=== PATIENT | female | born 1955 | race Caucasian/White ===

== ENCOUNTER → 2017-03-01 | Outpatient (CLI) | payer BC ==
[~2017-03-01] MED LIST: CENTRUM SILVER CHEW PO; POLY335025 PO; POLYCAP4 PO; VIACTIV CALCIUM PO; [UNRECOGNIZED DRUG - OTHER] PO
--- NOTE | 2017-03-02 08:21 | MAMMOGRAPHY REPORT ---
BILATERAL DIGITAL SCREENING MAMMOGRAM TOMOSYNTHESIS WITH CAD: 03/01/2017 CLINICAL HISTORY: Routine screening. Patient has no complaints. TECHNIQUE: Breast tomosynthesis in addition to standard 2D mammography was performed. Current study was also evaluated with a Computer Aided Detection (CAD) system. COMPARISON: Comparison is made to exams dated: 02/26/2016 mammogram, 02/24/2015 mammogram, 02/18/2014 mamm ogram, 02/15/2013 mammogram, 02/10/2012 mammogram, and 02/04/2011 mammogram - [facility] er. BREAST COMPOSITION: The tissue of both breasts is heterogeneously dense, which may obscure small mas ses. FINDINGS: The parenchymal pattern is unchanged. There are a few benign-appearing calcifications in the breasts. No developing mass, architectural distortion or cluster of suspicious microcalcificatio ns is seen. IMPRESSION: ACR BI-RADS CATEGORY 2: BENIGN There is no mammographic evidence of malignancy. A 1 year screening mammogram is recommended. The pa tient will receive written notification of the results. Approximately 10% of breast cancers are not detected with mammography. A negative mammographic report should not delay biopsy if a clinically suggestive mass is present. Jeannie Castellano M.D. ay/:03/01/2017 16:11:29 Bee Farmer: Sujatha GO)(Linda), [facility] letter sent: Normal 1/2 BI-RADS Code: ACR BI-RADS Category 2: Benign
== END | disposition home or self-care (01) ==
LOC: C.MAMM 12:51
PROVIDERS: ATTEND Family Medicine
DX: Z12.31 Encounter for screening mammogram for malignant neoplasm of breast (principal)

== ENCOUNTER → 2017-11-21 | Outpatient (CLI) | payer OTHER | END | disposition home or self-care (01) | LOC: C.MAMM 08:58 | PROVIDERS: ATTEND Family Medicine | DX: M85.88 Other specified disorders of bone density and structure, other site (principal) ==

== ENCOUNTER → 2018-04-24 | Outpatient (CLI) | payer OTHER ==
--- NOTE | 2018-04-24 16:13 | DIAGNOSTIC IMAGING REPORT ---
SOFT TISS HEAD/NECK-THYROID CLINICAL HISTORY: 63 years-old Female presenting with THYROID HYPODENSITY SHOWN ON CT SCAN/IRAJ. TECHNIQUE: Real-time grayscale and color Doppler ultrasound imaging of the thyroid and base of the neck was performed. COMPARISON: None. FINDINGS: Right lobe: Normal echogenicity and echotexture. The right lobe of the thyroid measures 5.2 x 1.2 x 1.4 cm. No parenchymal hyperemia. Index nodule(s) enumerated below: 1. Interpolar cystic simple circumscribed wider than tall nodule, measuring 0.6 x 0.4 x 0.5 cm. This also demonstrates posterior acoustic enhancement. Punctate peripheral hyperechogenic focus likely colloid. (Benign) Left lobe: Normal echogenicity and echotexture. The left lobe of the thyroid measures 5.2 x 1.3 x 1.4 cm. No parenchymal hyperemia. Index nodule(s) enumerated below: 1. Lower pole cystic simple circumscribed wider than tall nodule, measuring 0.7 x 0.4 x 0.5 cm. No calcification. (Benign) Isthmus: The isthmus measures 2 mm in thickness. No parenchymal hyperemia. No nodules. 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 No solid nodule. Electronically signed by: Alen Silva M.D. 04/24/2018 4:12 PM Dictated Date/Time: 04/24/2018 4:09 PM
== END | disposition home or self-care (01) ==
LOC: C.ULTR 15:04
PROVIDERS: ATTEND Family Medicine
DX: R93.8 Abnormal findings on diagnostic imaging of other specified body structures (principal)

== ENCOUNTER 2022-12-30 19:18 | Inpatient (IN) ==
[2022-12-30] MEDS ORDERED: SODIUM CHLORIDE 0.9% 1000ML 1,000 ML IV ONE (19:47)
[2022-12-30] MEDS ORDERED: ONDANSETRON INJ 2 MG/ML 2 ML VIAL IV STA (19:47)
[2022-12-30] MEDS ORDERED: KETOROLAC TROMETHAMINE 15 MG/ML VIAL IV STA (20:02)
[2022-12-30] MEDS ORDERED: MoRPHine SULFATE 4 MG/ML 1 ML CARP\\VIAL IV STA (20:02)
--- NOTE | 2022-12-30 20:07 | Emergency Department Note ---
Impression & Plan Lower abdominal pain, Constipation, Dysuria, Granulosa cell carcinoma ED Provider Note NAME: GALO ESTRADA AGE: 67 SEX: F : 1955 ARRIVES VIA: Walk-In INFORMANT: [Patient] ED PROVIDER(S): [Demetrius Joyce MD] CHIEF COMPLAINT: Abdominal pain HISTORY OF PRESENT ILLNESS: The patient is a 67-year-old female who presents with lower abdominal pain. The patient states that she had some pain this morning but it seemed to go away after a bowel movement. In the last few hours, the pain has returned and is quite severe. It is in the mid low pelvis. She also had a hard time urinating. No fever, no vomiting. There has been no cough or congestion or shortness of breath. She rates the pain as constant and she states it is quite severe. Patient is undergoing chemotherapy treatment for this cancer. She has had 3 of 6 scheduled infusions. She is followed primarily by [facility] although, she received her chemotherapy here under the care of Dr. Olvera. PMHx/PSHx: See Below SOCIAL HISTORY: See Below. PHYSICAL EXAM: GENERAL: Patient is in mild distress from pain. HEENT: No acute trauma, normocephalic atraumatic, mucous membranes moist, no nasal congestion. NECK: No stridor, no adenopathy, no meningismus, trachea is midline. LUNGS: Clear to auscultation bilaterally, no wheeze, no rhonchi, breath sounds equal. HEART: Without murmurs gallops or rubs, regular rate and rhythm. ABDOMEN: Soft, moderately tender in the mid low pelvis, there is some mild distention here. No true peritonitis. EXTREMITIES: No cyanosis or edema, full range of motion of all the joints without pain or difficulty, no signs for acute trauma. NEUROLOGIC: Oriented x 3, no acute motor or sensory deficits, no focal weakness. SKIN: No rash, no jaundice, no diaphoresis. DIFFERENTIAL DIAGNOSIS: Urinary retention, UTI, bowel obstruction, diverticulitis, appendicitis, foodborne or viral illness, among others. EMERGENCY DEPARTMENT COURSE/PROCEDURES: Prior/Outside records reviewed: None. MEDICAL DECISION MAKING: The patient had a Holder catheter placed by nursing staff. She felt markedly better after catheter placement. About 500 cc of urine drained. There is no leukocytosis or concerning anemia. There is a normal platelet count. No renal failure or significant electrolyte abnormality. No concerning liver enzyme elevation. No pancreatitis. Urinalysis does not show findings of infection. COVID test returned negative. Abdominal and pelvis CT shows worsening of her tumor burden, there was some fluid in the pelvis. There was the thought of potential bleeding into a tumor in the left upper quadrant. Of note, the patient does not have pain in this area. Constipation was noted. The patient received IV saline, 1 L, she was given IV Zofran IV morphine and IV Toradol. The patient states that he feels markedly better. She felt almost immediate relief with the placement of her Holder catheter. I spoke with Dr. Olvera of hematology oncology. We discussed the case. The patient is not in need of emergent transfer to [facility]. Apparently, the patient is failing all attempts to treat her cancer. For now, the patient can stay at our facility, a bowel regimen was suggested as constipation may in fact be the cause for her trouble. She did feel better earlier today with a bowel movement. Now that her bladder has been drained, she feels better. The patient does appear quite stable. She understands the need for hospitalization and observation. She understands she may require transfer to [facility] if worsening. I spoke with the counseling case manager, I did speak with the on-call hospitalist. DISPOSITION: Patient's presentation and findings warrant a hospital stay. 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 Beliefs That Will Affect Care: None marital status: Single Current Living Situation: Family current occupational status: retired Feels Safe at Home: Yes caffeine: No Physical Activity Frequency: 3-4 Times per Week Physical Activity Frequency Comment: training for 100 mile bike ride Assistive Devices: Glasses Allergies Allergies Allergy/AdvReac Type Severity Reaction Status Date / Time adhesive Allergy Unknown adhesive Verified 12/30/22 22:22 bandage Unclassified Drugs Allergy Unknown PUSTULES Uncoded 12/30/22 22:22 FORMED UNDER DERMABOND Home Meds Home Medications Medication Instructions Recorded Confirmed multivit with 1 tab PO QAM 03/29/19 12/30/22 [place]-zzbx-EX-lutein 8 mg iron-400 mcg-300 mcg tablet (Centrum Silver Women) mv-min-vit B-butc-cqiend dmitry-herb 1 mg PO QAM 03/29/19 12/30/22 #124 250 mg-12.5 mg chewable tablet (Airborne (with lysine acetate)) calcium 650 mg-vitamin D3 12.5 1 tab PO BID 10/02/19 12/30/22 mcg-vitamin K 40 mcg chewable tablet (Viactiv) anastrozole 1 mg tablet (Arimidex) 1 mg PO QAM 03/29/21 12/30/22 polyethylene glycol 3350 17 17 g PO DAILY 03/26/22 12/30/22 gram/dose oral powder (Miralax) psyllium husk 3.4 gram/5.4 gram 2 tbsp PO 3XWK 03/26/22 12/30/22 oral powder (Metamucil) white petrolatum (Vaseline jelly, 1 applic topical QA 12/30/22 12/30/22 topical) Results & Data (ED) Vital Signs Vital Signs - 24 hr 12/30/22 19:30 12/30/22 20:47 12/30/22 20:46 Temperature 36.6 C Temperature Source Temporal Artery Scan Pulse Rate 117 H 66 64 Pulse Rate from SpO2 Sensor 65 Respiratory Rate 20 20 Blood Pressure 121/52 L Blood Pressure Mean 75 Pulse Oximetry 99 98 Oxygen Delivery Method Room Air Sepsis Recent Fever Within 48 Hours No Sepsis New/Unexplained Change in Mental Status No Sepsis Action Taken by Nursing No Action Required 12/30/22 21:22 12/30/22 21:30 12/30/22 22:00 Temperature Temperature Source Pulse Rate 75 62 69 Pulse Rate from SpO2 Sensor 63 69 Respiratory Rate 39 H 16 17 Blood Pressure Blood Pressure Mean Pulse Oximetry 99 99 Oxygen Delivery Method Sepsis Recent Fever Within 48 Hours Sepsis New/Unexplained Change in Mental Status Sepsis Action Taken by Nursing 12/30/22 22:30 12/30/22 23:00 12/30/22 23:27 Temperature Temperature Source Pulse Rate 63 66 61 Pulse Rate from SpO2 Sensor 64 68 61 Respiratory Rate 17 22 12 Blood Pressure 107/62 Blood Pressure Mean 77 Pulse Oximetry 98 97 98 Oxygen Delivery Method Room Air Sepsis Recent Fever Within 48 Hours Sepsis New/Unexplained Change in Mental Status Sepsis Action Taken by Longterm Medications Current Medication List: was personally reviewed by me Laboratory Data Attestation: I reviewed the patient's lab results. 12/30/22 19:42 12/30/22 19:42 Lab Results 12/30/22 12/30/22 12/30/22 Range/Units 19:42 19:42 20:16 WBC 10.63 (4.8-10.8) K/ul RBC 4.76 (4.20-5.40) M/uL Hgb 13.3 (12.0-16.0) g/dl Hct 40.2 (37.0-47.0) % MCV 84.5 (80.0-100.0) fL MCH 27.9 (25.0-34.0) pg MCHC 33.1 (32.0-36.0) g/dL RDW Std Deviation 42.9 (36.4-46.3) fL RDW Coeff of [place] 13.8 (11.5-14.5) % Plt Count 218 (130-400) K/uL MPV 10.1 (9.4-12.4) fL Immature Gran % (Auto) 0.4 % Neut % (Auto) 87.8 % Lymph % (Auto) 6.5 % Mcmullen % (Auto) 5.0 % Eos % (Auto) 0.0 % Baso % (Auto) 0.3 % Neut # (Auto) 9.34 H (1.40-6.50) K/uL Lymph # (Auto) 0.69 L (1.2-3.4) K/uL Mcmullen # (Auto) 0.53 (0.11-0.59) K/uL Eos # (Auto) 0.00 (0-0.50) K/uL Baso # (Auto) 0.03 (0-0.2) K/uL Immature Gran # (Auto) 0.04 (0.01-0.20) K/uL Sodium 139 (136-145) mmol/L Potassium 4.6 (3.5-5.1) mmol/L Chloride 106 (98-107) mmol/L Carbon Dioxide 25 (21-32) mmol/L Anion Gap 8 (3-11) BUN 27 H (6-23) mg/dl Creatinine 0.95 (0.6-1.2) mg/dl Est Cr Clr Drug Dosing 42.4 ml/min Est GFR ( Amer) 72.8 ml/min Est GFR (Non-Af Amer) 62.9 ml/min BUN/Creatinine Ratio 28.4 H (10-20) Glucose 181 H (70-99(Fasting)) mg/dl Calcium 9.7 (8.6-10.3) mg/dl Total Bilirubin 0.6 (0.2-1.0) mg/dl AST 25 (13-39) U/L ALT 16 (7-52) U/L Alkaline Phosphatase 96 (34-104) U/L Total Protein 7.2 (6.0-8.3) gm/dl Albumin 4.1 (3.4-5.0) gm/dl Globulin 3.1 (2.5-4.0) gm/dl Albumin/Globulin Ratio 1.3 (0.9-2) Lipase 11 (11-82) U/L Urine Color Dark Yellow Urine Appearance Cloudy A (Clear) Urine pH 5.5 (4.5-7.5) Ur Specific [place] 1.021 (1.000-1.030) Urine Protein Negative (Negative) Urine Glucose (UA) Negative (Negative) Urine Ketones 1+ H (Negative) Urine Blood Negative (Negative) Urine Nitrite Negative (Negative) Urine Bilirubin Negative (Negative) Urine Urobilinogen Negative (Negative) Ur Leukocyte Esterase Negative (Negative) Urine WBC (Auto) 1-5 (0-5) /hpf Urine RBC (Auto) 0-4 (0-4) /hpf U Hyaline Cast (Auto) 1-5 (0-5) /lpf U Epithel Cells (Auto) 10-20 H (0-5) /lpf Urine Bacteria (Auto) Negative (Negative) Urine Crystals Not Reportable Uric Acid Crystals Present A (None Prsent) SARS-CoV-2, RNA, NAAT (NEGATIVE) 12/30/22 Range/Units 22:50 WBC (4.8-10.8) K/ul RBC (4.20-5.40) M/uL Hgb (12.0-16.0) g/dl Hct (37.0-47.0) % MCV (80.0-100.0) fL MCH (25.0-34.0) pg MCHC (32.0-36.0) g/dL RDW Std Deviation (36.4-46.3) fL RDW Coeff of [place] (11.5-14.5) % Plt Count (130-400) K/uL MPV (9.4-12.4) fL Immature Gran % (Auto) % Neut % (Auto) % Lymph % (Auto) % Mcmullen % (Auto) % Eos % (Auto) % Baso % (Auto) % Neut # (Auto) (1.40-6.50) K/uL Lymph # (Auto) (1.2-3.4) K/uL [place]ullen # (Auto) (0.11-0.59) K/uL Eos # (Auto) (0-0.50) K/uL Baso # (Auto) (0-0.2) K/uL Immature Gran # (Auto) (0.01-0.20) K/uL Sodium (136-145) mmol/L Potassium (3.5-5.1) mmol/L Chloride (98-107) mmol/L Carbon Dioxide (21-32) mmol/L Anion Gap (3-11) BUN (6-23) mg/dl Creatinine (0.6-1.2) mg/dl Est Cr Clr Drug Dosing ml/min Est GFR ( Amer) ml/min Est GFR (Non-Af Amer) ml/min BUN/Creatinine Ratio (10-20) Glucose (70-99(Fasting)) mg/dl Calcium (8.6-10.3) mg/dl Total Bilirubin (0.2-1.0) mg/dl AST (13-39) U/L ALT (7-52) U/L Alkaline Phosphatase (34-104) U/L Total Protein (6.0-8.3) gm/dl Albumin (3.4-5.0) gm/dl Globulin (2.5-4.0) gm/dl Albumin/Globulin Ratio (0.9-2) Lipase (11-82) U/L Urine Color Urine Appearance (Clear) Urine pH (4.5-7.5) Ur Specific [place] (1.000-1.030) Urine Protein (Negative) Urine Glucose (UA) (Negative) Urine Ketones (Negative) Urine Blood (Negative) Urine Nitrite (Negative) Urine Bilirubin (Negative) Urine Urobilinogen (Negative) Ur Leukocyte Esterase (Negative) Urine WBC (Auto) (0-5) /hpf Urine RBC (Auto) (0-4) /hpf U Hyaline Cast (Auto) (0-5) /lpf U Epithel Cells (Auto) (0-5) /lpf Urine Bacteria (Auto) (Negative) Urine Crystals Uric Acid Crystals (None Prsent) SARS-CoV-2, RNA, NAAT NEGATIVE (NEGATIVE) Administered Medications Discontinued Medications Sodium Chloride (Nss 1000ml) 1,000 mls @ 999 mls/hr IV .Q1H1M ONE Stop: 12/30/22 20:47 Last Infusion: 12/30/22 22:52 Dose: 0 mls/hr Documented By: Admin: 12/30/22 20:26 Dose: 999 mls/hr Documented By: JADEN Ioversol (Optiray 350 100ml) 82 ml IV ONCE ONE Stop: 12/30/22 20:58 Last Admin: 12/30/22 20:58 Dose: 82 ml Documented By: MAREILLA Ketorolac Tromethamine (Ketorolac Tromethamine 15 Mg/Ml Vial) 15 mg IV NOW STA Stop: 12/30/22 20:03 Last Admin: 12/30/22 20:27 Dose: 15 mg Documented By: JADEN Morphine Sulfate (Morphine Sulfate 4 Mg/Ml 1 Ml Carp\Vial) 4 mg IV NOW STA Stop: 12/30/22 20:03 Last Admin: 12/30/22 20:28 Dose: 4 mg Documented By: JADEN Ondansetron HCl (Ondansetron Inj 2 Mg/Ml 2 Ml Vial) 4 mg IV NOW STA Stop: 12/30/22 19:48 Last Admin: 12/30/22 20:27 Dose: 4 mg Documented By: JADEN Imaging Data Radiologist's Impression: Abdomen/Pelvis CT 12/30/22 19:47 CR Exam(s): CT ABDOMEN + PELVIS With Contrast IV Amt: 82ml EXAM: CT Abdomen and Pelvis With Intravenous Contrast CLINICAL HISTORY: Reason for exam: poss divertic. TECHNIQUE: Axial computed tomography images of the abdomen and pelvis with intravenous contrast. CTDI is 10.23 mGy and DLP is 418.14 mGy-cm. Automated exposure control was utilized for the study. A dose lowering technique was utilized adhering to the principles of ALARA. CONTRAST: Patient received 82ml of IV contrast COMPARISON: No relevant prior studies available. FINDINGS: Lung bases are clear. There is evidence of peritoneal carcinomatosis with multiple metastatic deposits, as seen on prior exam. There is a 1.7 cm mass indenting the liver capsule along the lateral right hepatic lobe, stable from prior exam (series 2, image 21) There is a right pelvic mass measuring 4.0 x 3.6 cm, increased from 3.1 x 3.0 cm on prior exam (series 2, image 64). Multiple additional pelvic masses have increased in size and number. There is a dominant left upper quadrant mass located at the splenic hilum which has increased in size from prior exam, currently measuring 7.8 x 6. 3 x 7.4 cm, previously 5.7 x 5.0 x 5.2 cm (series 2, image 27). There is a hypervascular blush within this mass concerning for active intratumoral bleeding. In addition, a small volume of hyperdense ascites has developed within the abdomen, which could reflect hemorrhagic versus proteinaceous fluid. Liver, gallbladder, spleen, pancreas, and right adrenal gland are unremarkable. Left adrenal gland is poorly visualized. Kidneys enhance symmetrically. There is no hydronephrosis. There is stable mild fullness of the bilateral renal collecting systems. There is mild atherosclerosis without aortic aneurysm. There is no adenopathy. Urinary bladder is decompressed around a Holder catheter. Uterus is not visualized and may be surgically absent. Colonic stool retention suggest constipation. There is no evidence of mechanical bowel obstruction. Appendix is not visualized. There are no acute osseous findings. IMPRESSION: 1. Peritoneal carcinomatosis. 2. Dominant left upper quadrant mass has increased in size. Intratumoral contrast blush is suggestive of active intratumoral hemorrhage in this location. 3. Interval development of small volume of hyperdense ascites. Differential considerations include hemoperitoneum versus proteinaceous fluid. 4. Interval increase in size and number of numerous metastatic deposits in the pelvis. 5. No evidence of acute bowel inflammation. Colonic stool retention suggesting constipation. Communications: Call Doctor Other Electronically signed by: Alexis Marroquin M.D. 12/30/22 21:42 PM Discharge Plan Visit Data Chief Complaint: Abdominal Pain Stated Complaint: ABDOMINAL PAIN ED Provider: Demetrius Joyce Discharge Problem: Lower abdominal pain, Constipation, Dysuria, Granulosa cell carcinoma Patient Disposition: Admitted As Inpatient Condition: Fair Forms Stand Alone Forms: My [facility] Prescriptions Prescriptions: No Action polyethylene glycol 3350 [Miralax] 17 gram/dose powder 17 g PO DAILY Metamucil 3.4 gram/5.4 gram powder 2 tbsp PO 3XWK Rx Instructions: mix into at least 8 oz of water or juice before administering Tuesday//Tuesday Centrum Silver Women 8 mg iron-400 mcg-300 mcg Tablet 1 tab PO QAM Airborne (with lysine acetate) 250-12.5 mg Tablet,Chewable 1 mg PO QAM calcium-vitamin D3-vitamin K [Viactiv] 650 mg-12.5 mcg-40 mcg Tablet,Chewable 1 tab PO BID Rx Instructions: 1 chew twice daily white petrolatum [Vaseline] Gel 1 applic TOPICAL QAM Rx Instructions: apply after cleansing to biopsy site left temporal area anastrozole [Arimidex] 1 mg tablet 1 mg PO QAM Referrals Referrals: Angie Martínez MD [Primary Care Provider] -
[2022-12-30 20:19] LABS: Basophils # (auto) 0.03 K/uL (0-0.2); Basophils % (auto) 0.3 %; Hematocrit (blood only) 40.2 % (37.0-47.0); Hemoglobin 13.3 g/dl (12.0-16.0); Immature Granulocytes # (auto) 0.04 K/uL (0.01-0.20); Immature Granulocytes % (auto) 0.4 %; Lymphocytes # (auto) 0.69 K/uL (1.2-3.4); Lymphocytes % (auto) 6.5 %; Mean Corpuscular Hemoglobin 27.9 pg (25.0-34.0); Mean Corpuscular Hgb Conc 33.1 g/dL (32.0-36.0); Mean Corpuscular Volume 84.5 fL (80.0-100.0); Mean Platelet Volume 10.1 fL (9.4-12.4); Monocytes # (auto) 0.53 K/uL (0.11-0.59); Neutrophils # (auto) 9.34 K/uL (1.40-6.50); Neutrophils % (auto) 87.8 %; Platelet Count 218 K/uL (130-400); RDW Coefficient of Variation 13.8 % (11.5-14.5); RDW Standard Deviation 42.9 fL (36.4-46.3); Red Blood Count 4.76 M/uL (4.20-5.40); White Blood Count 10.63 K/ul (4.8-10.8)
[2022-12-30 20:30] LABS: Appearance Urine Cloudy (Clear); Bacteria Urine Automated Negative (Negative); Bilirubin Urine Negative (Negative); Blood Urine Negative (Negative); Color Urine Dark Yellow; Glucose Urine UA Negative (Negative); Ketones Urine 1+ (Negative); Leukocyte Esterase Urine Negative (Negative); Nitrite Urine Negative (Negative); Protein Urine Negative (Negative); RBC Urine Automated 0-4 /hpf (0-4); Specific Gravity Urine 1.021 (1.000-1.030); Urobilinogen Urine Negative (Negative); pH Urine 5.5 (4.5-7.5)
[2022-12-30 20:32] LABS: Albumin Globulin Ratio 1.3 (0.9-2); Albumin Level 4.1 gm/dl (3.4-5.0); BUN Creatinine Ratio 28.4 (10-20); Bilirubin,Total 0.6 mg/dl (0.2-1.0); Calcium 9.7 mg/dl (8.6-10.3); Creatinine Clr Calc Pharmacy 42.4 ml/min; Est GFR (African American) 72.8 ml/min; Est GFR (Non-African American) 62.9 ml/min; Globulin 3.1 gm/dl (2.5-4.0); Potassium 4.6 mmol/L (3.5-5.1); Total Protein 7.2 gm/dl (6.0-8.3)
[2022-12-30 20:43] LABS: Uric Acid Crystals Urine Present (None Prsent)
[2022-12-30] MEDS ORDERED: OPTIRAY 350 100ml IV ONE (20:57)
--- NOTE | 2022-12-30 21:43 | CT Scan Report ---
Exam(s): CT ABDOMEN + PELVIS With Contrast IV Amt: 82ml EXAM: CT Abdomen and Pelvis With Intravenous Contrast CLINICAL HISTORY: Reason for exam: poss divertic. TECHNIQUE: Axial computed tomography images of the abdomen and pelvis with intravenous contrast. CTDI is 10.23 mGy and DLP is 418.14 mGy-cm. Automated exposure control was utilized for the study. A dose lowering technique was utilized adhering to the principles of ALARA. CONTRAST: Patient received 82ml of IV contrast COMPARISON: No relevant prior studies available. FINDINGS: Lung bases are clear. There is evidence of peritoneal carcinomatosis with multiple metastatic deposits, as seen on prior exam. There is a 1.7 cm mass indenting the liver capsule along the lateral right hepatic lobe, stable from prior exam (series 2, image 21) There is a right pelvic mass measuring 4.0 x 3.6 cm, increased from 3.1 x 3.0 cm on prior exam (series 2, image 64). Multiple additional pelvic masses have increased in size and number. There is a dominant left upper quadrant mass located at the splenic hilum which has increased in size from prior exam, currently measuring 7.8 x 6. 3 x 7.4 cm, previously 5.7 x 5.0 x 5.2 cm (series 2, image 27). There is a hypervascular blush within this mass concerning for active intratumoral bleeding. In addition, a small volume of hyperdense ascites has developed within the abdomen, which could reflect hemorrhagic versus proteinaceous fluid. Liver, gallbladder, spleen, pancreas, and right adrenal gland are unremarkable. Left adrenal gland is poorly visualized. Kidneys enhance symmetrically. There is no hydronephrosis. There is stable mild fullness of the bilateral renal collecting systems. There is mild atherosclerosis without aortic aneurysm. There is no adenopathy. Urinary bladder is decompressed around a Holder catheter. Uterus is not visualized and may be surgically absent. Colonic stool retention suggest constipation. There is no evidence of mechanical bowel obstruction. Appendix is not visualized. There are no acute osseous findings. IMPRESSION: 1. Peritoneal carcinomatosis. 2. Dominant left upper quadrant mass has increased in size. Intratumoral contrast blush is suggestive of active intratumoral hemorrhage in this location. 3. Interval development of small volume of hyperdense ascites. Differential considerations include hemoperitoneum versus proteinaceous fluid. 4. Interval increase in size and number of numerous metastatic deposits in the pelvis. 5. No evidence of acute bowel inflammation. Colonic stool retention suggesting constipation. Communications: Call Doctor Other Electronically signed by: Alexis Marroquin M.D. 12/30/22 21:42 PM
--- NOTE | 2022-12-30 23:34 | History & Physical Report ---
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 Now admitted for management of constipation without obstruction. Lower abdominal pain/constipation -Hemodynamically stable. No concerning lab abnormalities. FOBT negative -No evidence of ileus or obstruction or pneumoperitoneum on CT A/P. -Fecal retention noted on CT A/P suggesting constipation. -Patient reports 3 bowel movements on day of admission. * Admit to MedSurg * Clear liquid diet at breakfast. Advance as tolerated. * Bowel regimen: MiraLAX scheduled twice daily, electrolyte magnesia every 6 hours as needed * IV Tylenol 1000 mg every 8 hours as needed for pain. * IV Zofran 4 mg every 4 hour as needed for nausea. * Trend labs Granulosa cell tumor -Patient managed at [facility] but sees Dr. Olvera of [facility] oncology. -S/p surgery, chemotherapy with no improvement. -Per patient, currently midway through most recent round of chemotherapy treatments. -Dr. Olvera aware of patient admission, plan. Code: Full code Dispo: Med-Surg FEN/GI: Clear liquid diet. DVT Prophylaxis: Home Eliquis 2.5 mg p.o. twice daily PT/OT: No Consults: None (2) Constipation: (3) Granulosa cell tumor of left ovary: History of Present Illness Primary Care Provider: Angie Martínez MD Inga is a 67-year-old woman with a history of granulosa cell tumor of the left ovary who presented to the emergency room with lower abdominal pain. She had had some pain this morning that resolved after bowel movement. However, over the hours prior to admission, the pain returned and became quite severe. She localizes this pain in the mid lower abdomen and pelvis. She denies fever, nausea, cough, congestion, or shortness of breath. Pain is constant and severe. In the ED, patient was hemodynamically stable. No evidence of leukocytosis or anemia. Platelet count was normal. No electrolyte abnormalities were noted. No concerning liver elevation. No evidence of pancreatitis. Urinalysis was negative. CT abdomen pelvis did show worsening of patient's tumor burden, and some fluid was noted to be in the pelvis. However, no evidence of pneumoperitoneum and tumor is localized to the region entirely separate from the area of her abdominal pain. Patient received IV saline, IV Zofran,, and IV analgesics. On admission, patient reports feeling much better at this time. ED physician had placed Holder catheter, which relieved most of her symptoms. Allergies Allergy/AdvReac Type Severity Reaction Status Date / Time adhesive Allergy Unknown adhesive Verified 12/30/22 22:22 bandage Unclassified Drugs Allergy Unknown PUSTULES Uncoded 12/30/22 22:22 FORMED UNDER DERMABOND Home Medications Medication Instructions Recorded Confirmed Type multivit with 1 tab PO QAM 03/29/19 12/30/22 History qtvxdqgi-xvzb-HG-lutein 8 mg iron-400 mcg-300 mcg tablet (Centrum Silver Women) mv-min-vit L-yjaw-flyhwt dmitry-herb 1 mg PO QAM 03/29/19 12/30/22 History #124 250 mg-12.5 mg chewable tablet (Airborne (with lysine acetate)) calcium 650 mg-vitamin D3 12.5 1 tab PO BID 10/02/19 12/30/22 History mcg-vitamin K 40 mcg chewable tablet (Viactiv) anastrozole 1 mg tablet (Arimidex) 1 mg PO QAM 03/29/21 12/30/22 History polyethylene glycol 3350 17 17 g PO DAILY 03/26/22 12/30/22 History gram/dose oral powder (Miralax) psyllium husk 3.4 gram/5.4 gram 2 tbsp PO 3XWK 03/26/22 12/30/22 History oral powder (Metamucil) white petrolatum (Vaseline jelly, 1 applic topical QAM 12/30/22 12/30/22 History topical) Past Med/Surg History Medical History Granulosa cell carcinoma Surgical History H/O oophorectomy History of cancer surgery multiple tumor debulking procedures History of hysterectomy Family History (Updated 05/06/21 @ 08:24 by Vicki Nair RN) Mother Cancer Colon Cancer Social History Smoking Status: Never smoker Hx Alcohol Use: No Hx Substance Use: No Preferred Language: Grenadian Communication Ability: Effective Hearing Ability: Normal Wage And Salary Administrator Required: No Beliefs That Will Affect Care: None marital status: Single Current Living Situation: Family current occupational status: retired Other Information That Helps Us Care for You: No Feels Safe at Home: Yes Safety Concerns: Feels Safe At This Time caffeine: No Physical Activity Frequency: 3-4 Times per Week Physical Activity Frequency Comment: training for 100 mile bike ride Assistive Devices: None Review of Systems Review of Systems: All systems reviewed & are unremarkable except as noted in HPI & below Physical Exam Physical Exam: General: No acute distress HEENT: PERRLA. Normal conjunctiva, anicteric sclera. Oropharynx normal. Respiratory: Normal respiratory effort, CTABL. Cardiovascular: RRR without murmurs, gallops, or rubs. No edema. GI: Soft abdomen with normal bowel sounds heard on auscultation. Nontender x4 quadrants Neuro: Alert and oriented x3. Results & Data Results & Data Vital Signs (Past 12 Hours) Vital Signs Temp Pulse Resp BP Pulse Ox O2 Del Method 12/30/22 23:27 61 12 107/62 98 12/30/22 23:00 66 22 97 12/30/22 22:30 63 17 98 Room Air 12/30/22 22:00 69 17 99 12/30/22 21:30 62 16 99 12/30/22 21:22 75 39 H 12/30/22 20:46 64 12/30/22 20:47 66 20 98 12/30/22 19:30 36.6 C 117 H 20 121/52 L 99 Room Air Supervising Physician Co-Signing Physician Notes Attending addendum: I have physically seen this patient, have supervised the medical residents activities, and agree with the H&P unless as otherwise noted. Assessment and Plan: Lower abdominal pain/severe constipation- CT negative for obstruction, ileus or pneumoperitoneum Bowel regimen as noted Acetaminophen 1 g IV every 8 hours as needed for mild pain or fever Zofran 4 mg IV every 6 hours as needed for nausea or vomiting IV fluids Full liquid diet as tolerated Granulosa cell tumor- Recommendations for admission here per Dr. Olvera. Status post surgery and chemotherapy with [facility] Remaining orders and notations as noted Resident Activity Tracking Resident Involvement: Resident Care Provided Care Provided: Adult Hospital Medicine (2) Constipation Constipation type: unspecified constipation type Qualified Code(s): K59.00 - Constipation, unspecified
[2022-12-31] MEDS ORDERED: ONDANSETRON INJ 2 MG/ML 2 ML VIAL IV PRN (00:43)
[2022-12-31] MEDS ORDERED: MAGNESIUM HYDROXIDE SUSP 30 ML UDC PO PRN (01:36)
[2022-12-31] MEDS ORDERED: POLYETHYLENE (MIRALAX) 17 GM PACK PO STA (01:36)
[2022-12-31] MEDS ORDERED: ACETAMINOPHEN 1,000 MG/100 ML VIAL IV PRN (07:05)
[2022-12-31 07:12] LABS: BUN Creatinine Ratio 31.9 (10-20); Calcium 8.4 mg/dl (8.6-10.3); Est GFR (African American) 101.9 ml/min; Est GFR (Non-African American) 87.9 ml/min; Magnesium 2.2 mg/dl (1.7-2.4); Potassium 3.8 mmol/L (3.5-5.1)
[2022-12-31 08:04] LABS: Hematocrit (blood only) 29.1 % (37.0-47.0); Hemoglobin 9.8 g/dl (12.0-16.0); Mean Corpuscular Hemoglobin 27.8 pg (25.0-34.0); Mean Corpuscular Hgb Conc 33.7 g/dL (32.0-36.0); Mean Corpuscular Volume 82.7 fL (80.0-100.0); Mean Platelet Volume 10.6 fL (9.4-12.4); Platelet Count 144 K/uL (130-400); RDW Coefficient of Variation 14.1 % (11.5-14.5); RDW Standard Deviation 42.1 fL (36.4-46.3); Red Blood Count 3.52 M/uL (4.20-5.40); White Blood Count 9.01 K/ul (4.8-10.8)
[2022-12-31] MEDS: CALCIUM 600MG + VIT D 400 IU TAB PO SCH ×2 (08:47→20:34)
[2022-12-31] MEDS: APIXABAN 2.5 MG TAB PO SCH ×2 (08:47→20:34)
[2022-12-31] MEDS: ANASTROZOLE 1 MG TAB PO SCH (08:47)
[2022-12-31] MEDS: POLYETHYLENE (MIRALAX) 17 GM PACK PO SCH (08:48)
--- NOTE | 2022-12-31 08:53 | Hospitalist Progress Note ---
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 Now admitted for management of constipation without obstruction. Lower abdominal pain/constipation acute on chronic systemic complications -Hemodynamically stable. No concerning lab abnormalities. FOBT negative -No evidence of ileus or obstruction or pneumoperitoneum on CT A/P. -Fecal retention noted on CT A/P suggesting constipation. -Patient reports 3 bowel movements on day of admission. * Adding GoLytely with low volume high-frequency throughout the evening * Bowel regimen: MiraLAX scheduled twice daily, electrolyte magnesia every 6 hours as needed * IV Tylenol 1000 mg every 8 hours as needed for pain. * IV Zofran 4 mg every 4 hour as needed for nausea. * Consideration of bladder discomfort although urine analysis is not initially concerning we will check urine culture patient relates in the past she had some bladder neck issues from her tumor which responded to chemotherapy Granulosa cell tumor acute on chronic systemic complications -Patient managed at [facility] but sees Dr. Olvera of [facility] oncology. -S/p surgery, chemotherapy with no improvement. -Per patient, currently midway through most recent round of chemotherapy milady atments. -Dr. Olvera aware of patient admission, plan. Code: Full code DVT Prophylaxis: Home Eliquis 2.5 mg p.o. twice daily (2) Constipation: (3) Granulosa cell tumor of left ovary: Admission and Anticipated Discharge Date Admission Date: December 30, 2022 Subjective Patient having of lower abdominal pain and some urinary urgency. No pain is correlating with the left upper quadrant area that was possible hemorrhagic involution of a metastatic implant. Patient denies any bowel movement since admission but claims she is having bowel movements despite the fecal load seen on CT scan Physical Exam Physical Exam: Patient is awake and alert she has minor discomfort to her abdomen she is NABS soft and she is not with an acute abdomen tympanitic nor distended Results & Data Results & Data Vital Signs (Past 12 Hours) Vital Signs Temp Pulse Pulse Resp BP BP Pulse Ox 12/31/22 08:07 99.0 F 74 20 120/57 L 96 12/31/22 00:44 98.1 F 84 16 104/70 98 12/31/22 00:25 12/31/22 00:00 58 L 19 105/63 97 12/30/22 23:30 61 16 112/65 96 12/30/22 23:28 60 18 97 12/30/22 23:27 61 12 107/62 98 12/30/22 23:00 66 22 97 12/30/22 22:30 63 17 98 12/30/22 22:00 69 17 99 12/30/22 21:30 62 16 99 12/30/22 21:22 75 39 H O2 Del Method 12/31/22 08:07 Room Air 12/31/22 00:44 Room Air 12/31/22 00:25 Room Air, Oxymask 12/31/22 00:00 12/30/22 23:30 12/30/22 23:28 12/30/22 23:27 12/30/22 23:00 12/30/22 22:30 Room Air 12/30/22 22:00 12/30/22 21:30 12/30/22 21:22 PG Care Time/CCT Total # of Minutes Spent Total Time Spent with Patient: Total time spent is greater than 50% in coordination of care (as documented) at patient's floor/unit and/or counseling patient: Coding Level of Care Code 18464 SUB INP/OBS CARE 2/35MIN Diagnoses Lower abdominal pain R10.30 Constipation K59.00 Constipation type: unspecified constipation type Granulosa cell tumor of left ovary D39.12 (2) Constipation Constipation type: unspecified constipation type Qualified Code(s): K59.00 - Constipation, unspecified
[2022-12-31] MEDS ORDERED: POLYETHYLENE (MIRALAX) 17 GM PACK PO SCH (09:00)
[2022-12-31] MEDS ORDERED: LAVAGE SOLUTION 4000ML PO SCH ×2 (12:15→12:30)
--- NOTE | 2023-01-01 04:00 | Billing Data ---
Date of Service January 01, 2023 Coding Level of Care Code 45482 INT INP/OBS CARE
[2023-01-01 06:28] LABS: Hemoglobin 9.6 g/dl (12.0-16.0); Mean Corpuscular Hemoglobin 28.2 pg (25.0-34.0); Mean Corpuscular Hgb Conc 33.1 g/dL (32.0-36.0); Mean Corpuscular Volume 85.3 fL (80.0-100.0); Mean Platelet Volume 10.8 fL (9.4-12.4); Platelet Count 119 K/uL (130-400); RDW Coefficient of Variation 13.9 % (11.5-14.5); RDW Standard Deviation 43.4 fL (36.4-46.3); White Blood Count 6.66 K/ul (4.8-10.8)
[2023-01-01 06:37] LABS: BUN Creatinine Ratio 24.6 (10-20); Calcium 8.4 mg/dl (8.6-10.3); Est GFR (African American) 112.7 ml/min; Est GFR (Non-African American) 97.3 ml/min; Magnesium 1.8 mg/dl (1.7-2.4); Phosphorus 2.4 mg/dl (2.5-4.9); Potassium 4.2 mmol/L (3.5-5.1)
[2023-01-01] MEDS: POLYETHYLENE (MIRALAX) 17 GM PACK PO SCH (07:42)
[2023-01-01] MEDS: CALCIUM 600MG + VIT D 400 IU TAB PO SCH ×2 (07:42→20:34)
[2023-01-01] MEDS: ANASTROZOLE 1 MG TAB PO SCH (07:42)
[2023-01-01] MEDS: APIXABAN 2.5 MG TAB PO SCH ×2 (07:42→20:34)
[2023-01-01] MEDS ORDERED: OPTIRAY 350 100ml IV ONE (13:06)
--- NOTE | 2023-01-01 13:30 | CT Scan Report ---
CT SCAN OF THE ABDOMEN WITH IV CONTRAST CLINICAL HISTORY: Ovarian cancer. Hemorrhagic left upper quadrant mass. COMPARISON STUDY: Abdominal CT scans dated 12/30/2022 and 06/14/2022. TECHNIQUE: Following the IV administration of 86 cc of Optiray 350, CT scan of the abdomen is perfor med from the lung bases to the pelvic inlet. Images are reviewed in the axial, sagittal, and coronal planes. IV contrast was administered without complication. A dose lowering technique was utilized adh ering to the principles of ALARA. CT DOSE: 158.52 mGy.cm FINDINGS: Lung bases: The heart is mildly enlarged and without pericardial effusion. There are trace pleural ef fusions with dependent atelectasis. No airspace consolidation is seen typical for pneumonia. Liver: The contrast-enhanced liver is normal in size, contour, and attenuation. There is no intrahepa tic biliary ductal dilatation. The hepatic veins and portal veins are patent. Gallbladder: Unremarkable. Spleen: Normal in size and attenuation. Pancreas: Unremarkable. Adrenal glands: Unremarkable. Kidneys: The contrast enhanced kidneys are normal in size and without hydronephrosis. The kidneys enh ance symmetrically. Renal sinus cysts are seen bilaterally. Abdominal vasculature: The abdominal aorta is normal in course and caliber noting mild atheroscleroti c calcification. Bowel: Liquid stool is noted in the right colon. Imaged portions of bowel show no evidence of high-gr queta obstruction. A small duodenal diverticulum is incidentally noted. Peritoneum: A small volume of hyperdense perisplenic and perihepatic fluid is again noted. No intrape ritoneal free air is seen. Again seen is evidence of peritoneal carcinomatosis. A dominant mass lesio n in the left upper quadrant on image #103 measures 8.6 x 8.5 x 7.3 cm. This closely approximates and likely invades the adjacent, and also causes mass effect on the posterior aspect of the stomach. The re is heterogeneous internal enhancement a large surrounding collateral vessels. Findings suspicious for active extravasation seen on 12/30/2022 have decreased from previous. There is a smaller arterial blush within the lesion seen on image #128. There are at least 2 implants along the hepatic capsule. The larger lesion is seen on image #87 measures 2.7 cm. A smaller lesion on the dome of liver on imag e #26 measures up to 1.1 cm. A left retroperitoneal lesion below the left kidney on image #22 measure s up to 2.9 cm. Additional smaller implants are seen anteriorly on image #181 in the left mid abdomen on image #212. Lymphadenopathy: None. Skeletal structures: The skeletal structures are heterogeneously osteopenic. Mild degenerative change s noted. No lytic or blastic lesions are seen. IMPRESSION: 1. Findings of peritoneal carcinomatosis have not significantly changed as compared to 12/30/2022. 2. The dominant left upper quadrant mass lesion again shows heterogeneous internal enhancement. Hyper dense contrast within the lesion suggestive of intratumoral hemorrhage/extravasation seen on 3 appears decreased but has not entirely resolved. 3. No new foci of active extravasation are suggested. 4. A small volume of complex perihepatic and perisplenic fluid is again noted. This has decreased fro m previous and likely represents hemoperitoneum. 5. Mild cardiomegaly and trace pleural effusions. 6. Liquid stool is seen throughout the colon. 7. Additional findings as above. ACT 112: Negative or not required by law. Electronically signed by: Demetrius Horvath M.D. 01/01/2023 1:28 PM
--- NOTE | 2023-01-01 15:33 | Hospitalist Progress Note ---
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 Now admitted for management of constipation without obstruction. abdominal pain/constipation -Hemodynamically stable. Patient did have some anemia but there is no source of intra-abdominal bleeding -No evidence of ileus or obstruction or pneumoperitoneum on CT A/P. -Fecal retention noted on CT A/P suggesting constipation, this was relieved by GoLytely with voluminous bowel movements Now we are going to advance as tolerated. Granulosa cell tumor -Patient managed at [facility] but sees Dr. Olvera of [facility] oncology. -S/p surgery, chemotherapy with no improvement. -Per patient, currently midway through most recent round of chemotherapy treatments, imaging suggest left upper quadrant mass is increased in tot side with intratumoral contrast blush suggestive of a intramural hemorrhage this on repeat imaging however did not worsen. The dominant mass measured 7.8 x 6.3 x 7.4 where previously was 5.7 x 5.0 x 5.2 cm -Dr. Olvera aware of patient admission, plan. Code: Full code Advancing diet pain is controlled minor anemia is felt to be due to dilution DVT Prophylaxis: Home Eliquis 2.5 mg p.o. twice daily (2) Constipation: (3) Granulosa cell tumor of left ovary: Admission and Anticipated Discharge Date Admission Date: December 30, 2022 Subjective Patient had some discomfort in upper abdomen overnight this is not correlating to the area of minor hemorrhage that was seen inside of the tumor implant. We repeated a CT scan of the abdomen today which showed no worsening of hemorrhage in fact some minor reduction of it and also showed improvement of her constipation. However she just started eating regular food she feels weak and tired and not able to go home at this time Physical Exam Physical Exam: Patient is awake and alert she has minor discomfort to her abdomen she is NABS soft and she is not with an acute abdomen tympanitic nor distended The left upper quadrant pain that was this experienced overnight has not returned it is not reproducible on exam Results & Data Results & Data Vital Signs (Past 12 Hours) Vital Signs Temp Pulse Pulse Resp BP BP Pulse Ox 01/01/23 07:44 98.4 F 69 16 126/72 97 01/01/23 07:44 99.1 F 68 16 128/73 97 O2 Del Method 01/01/23 07:44 Room Air 01/01/23 07:44 Room Air Laboratory Results Reviewed CBC Reviewed PRP PG Care Time/CCT Total # of Minutes Spent Total Time Spent with Patient: Total time spent is greater than 50% in coordination of care (as documented) at patient's floor/unit and/or counseling patient: Coding Level of Care Code 11405 SUB INP/OBS CARE 2/35MIN Diagnoses Lower abdominal pain R10.30 Constipation K59.00 Constipation type: unspecified constipation type Granulosa cell tumor of left ovary D39.12 (2) Constipation Constipation type: unspecified constipation type Qualified Code(s): K59.00 - Constipation, unspecified
[2023-01-02 06:44] LABS: Hematocrit (blood only) 28.9 % (37.0-47.0); Hemoglobin 9.9 g/dl (12.0-16.0); Mean Corpuscular Hemoglobin 28.4 pg (25.0-34.0); Mean Corpuscular Hgb Conc 34.3 g/dL (32.0-36.0); Mean Platelet Volume 10.9 fL (9.4-12.4); Platelet Count 139 K/uL (130-400); RDW Coefficient of Variation 13.7 % (11.5-14.5); RDW Standard Deviation 41.6 fL (36.4-46.3); Red Blood Count 3.48 M/uL (4.20-5.40); White Blood Count 8.36 K/ul (4.8-10.8)
[2023-01-02 06:58] LABS: BUN Creatinine Ratio 17.9 (10-20); Calcium 8.7 mg/dl (8.6-10.3); Creatinine Clr Calc Pharmacy 78.4 ml/min; Est GFR (African American) 113.4 ml/min; Est GFR (Non-African American) 97.8 ml/min; Magnesium 1.6 mg/dl (1.7-2.4); Phosphorus 2.4 mg/dl (2.5-4.9)
[2023-01-02 07:50] VITALS: BP 128/70; PULSE 70; TEMP 97.7; O2SAT 97
[2023-01-02] MEDS: CALCIUM 600MG + VIT D 400 IU TAB PO SCH (08:08)
[2023-01-02] MEDS: ANASTROZOLE 1 MG TAB PO SCH (08:08)
[2023-01-02] MEDS: APIXABAN 2.5 MG TAB PO SCH (08:08)
[2023-01-02] MEDS: MAGNESIUM SULFATE / D5W 1 GM/100 ML BAG IV SCH ×2 (09:18→11:28)
--- NOTE | 2023-01-02 14:28 | Discharge Summary ---
Date of Service January 02, 2023 Admission HPI Per Admitting Provider Inga is a 67-year-old woman with a history of granulosa cell tumor of the left ovary who presented to the emergency room with lower abdominal pain. She had had some pain this morning that resolved after bowel movement. However, over the hours prior to admission, the pain returned and became quite severe. She localizes this pain in the mid lower abdomen and pelvis. She denies fever, nausea, cough, congestion, or shortness of breath. Pain is constant and severe. In the ED, patient was hemodynamically stable. No evidence of leukocytosis or anemia. Platelet count was normal. No electrolyte abnormalities were noted. No concerning liver elevation. No evidence of pancreatitis. Urinalysis was negative. CT abdomen pelvis did show worsening of patient's tumor burden, and some fluid was noted to be in the pelvis. However, no evidence of pneumoperitoneum and tumor is localized to the region entirely separate from the area of her abdominal pain. Patient received IV saline, IV Zofran,, and IV analgesics. On admission, patient reports feeling much better at this time. ED physician had placed Holder catheter, which relieved most of her symptoms. Principal Diagnosis Abdominal pain relieved after bowel movement Obstipation Granulosa cell carcinoma with abdominal metastasis including the possibility of intra metastatic hemorrhage Discharge Exam Awake and alert discomforts resolved discussed bowel habits at length Given plus/minus results of CAT scan would recommend follow-up with Dr. 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 Now admitted for management of constipation without obstruction. abdominal pain/constipation -Hemodynamically stable. Patient did have some anemia but there is no source of intra-abdominal bleeding -No evidence of ileus or obstruction or pneumoperitoneum on CT A/P. -Fecal retention noted on CT A/P suggesting constipation, this was relieved by GoLytely with voluminous bowel movements Tolerated advancing diet Granulosa cell tumor -Patient managed at [facility] but sees Dr. Olvera of [facility] oncology. -S/p surgery, chemotherapy with no improvement. -Per patient, currently midway through most recent round of chemotherapy treatments, imaging suggest left upper quadrant mass is increased in tot side with intratumoral contrast blush suggestive of a intramural hemorrhage this on repeat imaging however did not worsen. The dominant mass measured 7.8 x 6.3 x 7.4 where previously was 5.7 x 5.0 x 5.2 cm -Dr. Olvera aware of patient admission, plan for outpatient follow-up. Patient confusion regarding the patient's DVT prevention there is listed that she is on Eliquis at home 2.5 twice daily however I cannot find this on any documentation from [facility] [place] or [facility] or anything so subsequently I cannot make good advice especially given the fact that she is got a blush in site of one of her medicines static areas which could be bleeding. Subsequently I did not place on her med reconciliation but would recommend close follow-up as an outpatient to discuss this. 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, Smoking Cessation Medications and DC Order Prescriptions: New magnesium 200 mg tablet 200 mg PO BID Qty: 60 6RF Continued polyethylene glycol 3350 [Miralax] 17 gram/dose powder 17 g PO DAILY Metamucil 3.4 gram/5.4 gram powder 2 tbsp PO 3XWK Rx Instructions: mix into at least 8 oz of water or juice before administering Tuesday//Tuesday Centrum Silver Women 8 mg iron-400 mcg-300 mcg Tablet 1 tab PO QAM Airborne (with lysine acetate) 250-12.5 mg Tablet,Chewable 1 mg PO QAM calcium-vitamin D3-vitamin K [Viactiv] 650 mg-12.5 mcg-40 mcg Tablet,Chewable 1 tab PO BID Rx Instructions: 1 chew twice daily white petrolatum [Vaseline] Gel 1 applic TOPICAL QAM Rx Instructions: apply after cleansing to biopsy site left temporal area anastrozole [Arimidex] 1 mg tablet 1 mg PO QAM Discharge Orders: Discharge Order (Routine); Ordered 01/02/23 Ordered By: Christophe Meraz Admission Data Admit Date/Time: 12/30/22 23:31 Attending Provider: Christophe Meraz Admit Provider: Cristina Muñoz Primary Care Provider: Angie Martínez Other Providers: Aaron Mcghee Other Interventions: Discharge Summary Assessment (RN) Last Done: 01/02/23 12:18 Coding Level of Care Code 63634 INP/OBS DISCH >30 MIN Diagnoses Lower abdominal pain R10.30 Constipation K59.00 Constipation type: unspecified constipation type Granulosa cell tumor of left ovary D39.12
== END 2023-01-02 14:37 | disposition home or self-care (01) | DRG 392 ==
LOC: ED 19:18 → SUATTDRO 23:31 → 2W 23:31 → 3E 12-31 20:41

== ENCOUNTER 2023-01-30 05:53 | Observation (INO) ==
[2023-01-30] MEDS ORDERED: ONDANSETRON INJ 2 MG/ML 2 ML VIAL IV STA ×3 (06:17→13:58)
[2023-01-30 06:53] LABS: Hematocrit (blood only) 46.3 % (37.0-47.0); Hemoglobin 15.2 g/dl (12.0-16.0); Mean Corpuscular Hgb Conc 32.8 g/dL (32.0-36.0); Mean Corpuscular Volume 82.4 fL (80.0-100.0); Mean Platelet Volume 9.6 fL (9.4-12.4); Platelet Count 398 K/uL (130-400); RDW Coefficient of Variation 14.6 % (11.5-14.5); RDW Standard Deviation 43.4 fL (36.4-46.3); Red Blood Count 5.62 M/uL (4.20-5.40); White Blood Count 13.79 K/ul (4.8-10.8)
[2023-01-30] MEDS ORDERED: SODIUM CHLORIDE 0.9% 1000ML 1,000 ML IV ONE ×2 (06:56→07:53)
--- NOTE | 2023-01-30 07:04 | Emergency Department Note ---
Impression & Plan Nausea & vomiting ED Provider Note ED Provider Note NAME: GALO ESTRADA AGE:67 SEX: Female : 1955 ARRIVES VIA: private vehicle INFORMANT: Patient ED PROVIDER(s): Carmella Hollis DO CHIEF COMPLAINT: nausea and vomiting HPI: This is a 67-year-old female who presents emergency department due to concern for recurrent nausea vomiting. She states symptoms began overnight. She had intermittent abdominal pain, no back pain, no diarrhea. Patient states she felt well yesterday. She describes abdominal pain as crampy and in various locations. Patient states she has had recent sick contacts, however no other change in medication or diet. She denies fevers or chills. No blood in the emesis. Patient has had prior abdominal surgeries. No history of PUD, IBS, or IBD. Patient states she did pass out while in the bathroom during an episode of vomiting. No recent preceding headaches or recent head trauma. Patient denies any pain or injury to her head/face at this time following the episode of passing out. PAST MEDICAL HISTORY:See Below PAST SURGICAL HISTORY:See Below FAMILY HISTORY:See Below SOCIAL HISTORY:See Below HOME MEDICATIONS:See Below ALLERGIES:See Below VITALS:See Below PHYSICAL EXAMINATION: GENERAL: alert, well appearing, well nourished, no distress, non-toxic EYE EXAM: normal conjunctiva, PERRL and EOM's grossly intact OROPHARYNX: no exudate, no erythema, lips, buccal mucosa, and tongue normal and mucous membranes are moist NECK: supple, no nuchal rigidity, no adenopathy, non-tender LUNGS: Clear to auscultation. Normal chest wall mechanics, no w/r/r HEART: no murmurs, S1 normal and S2 normal ABDOMEN: abdomen soft, non-tender, normo-active bowel sounds, no masses, no rebound or guarding. Dull to percussion. BACK: Back is symmetrical on inspection and there is no deformity, no midline tenderness, no CVA tenderness. SKIN: no rashes, petechiae, orbruising UPPER EXTREMITIES: upper extremities are grossly normal. FROM, nml pulses b/l. LOWER EXTREMITIES: No pitting edema. FROM, nml pulses b/l. NEURO EXAM: Normal sensorium, cranial nerves II-XII grossly intact, normal speech, no facial droop,nogross weakness of arms, no gross weakness of legs. Gross sensation intact. No ataxia. Vital Signs: reviewed and remarkable Differential Diagnosis: Differential: Gastroenteritis, Food Borne, Esophageal Perforation, Electrolyte Abnormality, Dehydration, Intraabdominal Infection, UTI/Pyelonephritis, Bowel Obstruction, perforation, biliary Pathology, amongst other pathology entertained. MEDICAL DECISION MAKING: This is a 67-year-old female presents emergency department due to concern for persistent nausea and vomiting and possible dehydration. Patient most concerned she has acquired a viral illness. Labs drawn and sent, IV established, EKG performed at bedside and interpreted by me and patient monitored on telemetry. Initially KUB ordered and performed at bedside and interpreted by me additionally without any obvious SBO. Patient started on IV fluids and given IV Zofran with improvement of symptoms. Patient monitored, additional IV fluids given, and she was sent for CT imaging due to history of prior abdominal surgery and ovarian cancer. CT read by radiology as possible ileus versus possible early partial SBO. Patient was dull to percussion, nondistended, passing gas, and did have a bowel movement here after 2 L of fluids. She was slowly dianne ating p.o. without any recurrent vomiting or abdominal pain. We discussed options for disposition and after extensive discussion patient wished to try and go home. Home packs were given for Zofran and Bentyl, and patient was well- appearing at time of discharge. Unfortunately, upon reaching the waiting room patient had recurrent vomiting and was near syncopal again. She was returned to her room, and the hospitalist consulted for additional inpatient evaluation and management. Patient remained hemodynamically stable. Repeat IV was established and IV fluids started, she was given additional IV Zofran. At this time I do not suspect perforation, GI bleed, mesenteric ischemia, volvulus, int ussusception, head injury, or PROGRAM SUPPORT CLERK etiology of her vomiting. No evidence for bacteremia/sepsis. I do not suspect ACS contributing to her nausea and vomiting. Consultation(s): 1418: Discussed with Dr. Ferrari. ER Treatment Provided: See below 1315: Patient has had no recurrent symptoms and is tolerating p.o. over the last several hours. She is passing gas and did have a bowel movement here. Discussed with patient options for disposition given labs and imaging as well as improvement in overall condition. At this time patient would like to try and go home. We discussed use of antiemetics and Bentyl at home. We discussed clear liquid diet for 48 hours, symptoms to watch and return for, she verbalized understanding was in agreement with the plan. 1410: Patient opted for discharge and had gotten out to the waiting room when she began having recurrent vomiting and was near syncopal. She was promptly placed in a wheelchair and brought back into room C11. Diagnostics Interpreted By Me: -ECG: Sinus bradycardia at 53, normal axis, normal intervals, no acute ST/T wave changes -Cardiac Monitoring: An order was placed for continuous cardiac monitoring. The monitor shows a rate of 78 with normal sinus rhythm. -Laboratory studies: As stated above and show below. -Imaging studies: KUB: no obvious SBO Triage Nursing Note Reviewed Prior/Outside Records Reviewed Past Med/Surg History Medical History Granulosa cell carcinoma Surgical History H/O oophorectomy History of cancer surgery multiple tumor debulking procedures History of hysterectomy Family History Mother Cancer Colon Cancer Social History Smoking Status: Never smoker Hx Alcohol Use: No Hx Substance Use: No Preferred Language: Sami Communication Ability: Effective Hearing Ability: Normal Customer Resource Specialist Required: No Beliefs That Will Affect Care: None marital status: Single Current Living Situation: Family current occupational status: retired Feels Safe at Home: Yes Diet: regular caffeine: No Physical Activity Frequency: 3-4 Times per Week Physical Activity Frequency Comment: training for 100 mile bike ride Assistive Devices: None Allergies Allergies Allergy/AdvReac Type Severity Reaction Status Date / Time adhesive Allergy Unknown adhesive Verified 12/30/22 22:22 bandage Unclassified Drugs Allergy Unknown PUSTULES Uncoded 12/30/22 22:22 FORMED UNDER DERMABOND Home Meds Home Medications Medication Instructions Recorded Confirmed multivit with 1 tab PO QAM 03/29/19 12/30/22 ioynbieg-kwts-HI-lutein 8 mg iron-400 mcg-300 mcg tablet (Centrum Silver Women) mv-min-vit J-kcdn-gityqq dmitry-herb 1 mg PO QAM 03/29/19 12/30/22 #124 250 mg-12.5 mg chewable tablet (Airborne (with lysine acetate)) calcium 650 mg-vitamin D3 12.5 1 tab PO BID 10/02/19 12/30/22 mcg-vitamin K 40 mcg chewable tablet (Viactiv) anastrozole 1 mg tablet (Arimidex) 1 mg PO QAM 03/29/21 12/30/22 polyethylene glycol 3350 17 17 g PO DAILY 03/26/22 12/30/22 gram/dose oral powder (Miralax) psyllium husk 3.4 gram/5.4 gram 2 tbsp PO 3XWK 03/26/22 12/30/22 oral powder (Metamucil) white petrolatum (Vaseline jelly, 1 applic topical QAM 12/30/22 12/30/22 topical) Previous Rx's Medication Instructions Recorded magnesium 200 mg tablet 200 mg PO BID #60 tabs 01/02/23 dicyclomine 10 mg capsule 10 mg PO TID PRN abdominal pain 01/30/23 #10 caps ondansetron HCl 4 mg tablet 4 mg PO Q8H PRN nausea and 01/30/23 vomiting #10 tabs Results & Data (ED) Vital Signs Vital Signs - 24 hr 01/30/23 06:00 01/30/23 06:52 01/30/23 08:28 Temperature 36.3 C L Temperature Source Oral Pulse Rate 76 Pulse Rate [Apical] 66 Respiratory Rate 22 18 Blood Pressure 118/77 Blood Pressure [Left Arm] 127/67 Blood Pressure Mean 90 Blood Pressure Mean [Left Arm] 87 Pulse Oximetry 100 100 99 Oxygen Delivery Method Room Air Room Air Room Air Sepsis Recent Fever Within 48 Hours No Sepsis New/Unexplained Change in Mental Status No Sepsis Action Taken by Nursing No Action Required 01/30/23 09:10 01/30/23 10:28 01/30/23 12:00 Temperature Temperature Source Pulse Rate 63 Pulse Rate [Apical] 58 L 54 L Respiratory Rate 18 18 Blood Pressure Blood Pressure [Left Arm] 122/72 123/77 Blood Pressure Mean Blood Pressure Mean [Left Arm] 88 92 Pulse Oximetry 99 98 Oxygen Delivery Method Room Air Room Air Sepsis Recent Fever Within 48 Hours Sepsis New/Unexplained Change in Mental Status Sepsis Action Taken by Nursing 01/30/23 13:08 01/30/23 13:45 Temperature Temperature Source Pulse Rate 49 L 51 L Pulse Rate [Apical] Respiratory Rate 16 Blood Pressure 126/70 Blood Pressure [Left Arm] Blood Pressure Mean Blood Pressure Mean [Left Arm] Pulse Oximetry 99 Oxygen Delivery Method Room Air Sepsis Recent Fever Within 48 Hours Sepsis New/Unexplained Change in Mental Status Sepsis Action Taken by Nursing Laboratory Data 01/30/23 06:17 01/30/23 06:17 Lab Results 01/30/23 01/30/23 01/30/23 Range/Units 06:17 06:17 09:08 WBC 13.79 H (4.8-10.8) K/ul RBC 5.62 H (4.20-5.40) M/uL Hgb 15.2 (12.0-16.0) g/dl Hct 46.3 (37.0-47.0) % MCV 82.4 (80.0-100.0) fL MCH 27.0 (25.0-34.0) pg MCHC 32.8 (32.0-36.0) g/dL RDW Std Deviation 43.4 (36.4-46.3) fL RDW Coeff of Yesenia 14.6 H (11.5-14.5) % Plt Count 398 (130-400) K/uL MPV 9.6 (9.4-12.4) fL Immature Gran % (Auto) 0.5 % Neut % (Auto) 92.9 % Lymph % (Auto) 3.4 % Mcdonough % (Auto) 3.0 % Eos % (Auto) 0.1 % Baso % (Auto) 0.1 % Neut # (Auto) 12.81 H (1.40-6.50) K/uL Lymph # (Auto) 0.47 L (1.2-3.4) K/uL Mcdonough # (Auto) 0.41 (0.11-0.59) K/uL Eos # (Auto) 0.01 (0-0.50) K/uL Baso # (Auto) 0.02 (0-0.2) K/uL Immature Gran # (Auto) 0.07 (0.01-0.20) K/uL Sodium 141 (136-145) mmol/L Potassium 4.5 (3.5-5.1) mmol/L Chloride 102 (98-107) mmol/L Carbon Dioxide 29 (21-32) mmol/L Anion Gap 10 (3-11) BUN 19 (6-23) mg/dl Creatinine 0.76 (0.6-1.2) mg/dl Est Cr Clr Drug Dosing 55.9 ml/min Est GFR ( Amer) 95.4 ml/min Est GFR (Non-Af Amer) 82.3 ml/min BUN/Creatinine Ratio 25.0 H (10-20) Glucose 167 H (70-99(Fasting)) mg/dl POC Glucose 113 H (70-99) mg/dl Calcium 10.7 H (8.6-10.3) mg/dl Total Bilirubin 0.5 (0.2-1.0) mg/dl AST 19 (13-39) U/L ALT 9 (7-52) U/L Alkaline Phosphatase 110 H (34-104) U/L Total Protein 8.4 H (6.0-8.3) gm/dl Albumin 4.5 (3.4-5.0) gm/dl Globulin 3.9 (2.5-4.0) gm/dl Albumin/Globulin Ratio 1.2 (0.9-2) Lipase 28 (11-82) U/L Administered Medications Discontinued Medications Dicyclomine HCl (Bentyl Home Pack 10 Mg Vial) 1 ea PO UD ONE Stop: 01/30/23 13:21 Last Admin: 01/30/23 13:42 Dose: 1 ea Documented By: REHAN Sodium Chloride (Nss 1000ml) 1,000 mls @ 999 mls/hr IV .Q1H1M ONE Stop: 01/30/23 07:56 Last Infusion: 01/30/23 08:10 Dose: 0 mls/hr Documented By: Admin: 01/30/23 07:07 Dose: 999 mls/hr Documented By: OL Sodium Chloride (Nss 1000ml) 1,000 mls @ 999 mls/hr IV .Q1H1M ONE Stop: 01/30/23 08:53 Last Infusion: 01/30/23 09:14 Dose: 0 mls/hr Documented By: Admin: 01/30/23 08:05 Dose: 999 mls/hr Documented By: OL Acetaminophen (Ofirmev) 1,000 mg in 100 mls @ 400 mls/hr IV NOW STA Stop: 01/30/23 09:27 Last Infusion: 01/30/23 09:38 Dose: 0 mls/hr Documented By: Admin: 01/30/23 09:18 Dose: 400 mls/hr Documented By: CHARLOTTE Ioversol (Optiray 320 100ml) 86 ml IV ONCE ONE Stop: 01/30/23 08:22 Last Admin: 01/30/23 08:22 Dose: 86 ml Documented By: ANA PAULA Ondansetron HCl (Ondansetron Inj 2 Mg/Ml 2 Ml Vial) 4 mg IV NOW STA Stop: 01/30/23 06:18 Last Admin: 01/30/23 06:22 Dose: 4 mg Documented By: MAURIZIO Ondansetron HCl (Ondansetron Inj 2 Mg/Ml 2 Ml Vial) 4 mg IV NOW STA Stop: 01/30/23 09:14 Last Admin: 01/30/23 09:18 Dose: 4 mg Documented By: CHARLOTTE Ondansetron HCl (Ondansetron Home Pack 4mg Od Tab) 1 each PO NOW ONE Stop: 01/30/23 13:21 Last Admin: 01/30/23 13:42 Dose: 1 each Documented By: REHAN Imaging Data Radiologist's Impression: KUB X-Ray 01/30/23 06:56 XR KUB/Abdomen 1 view CLINICAL HISTORY: n/v TECHNIQUE: 1 view of the abdomen was obtained. Comparison: Comparison is made to CT abdomen 01/01/2023 FINDINGS: Lung bases are unremarkable. Degenerative changes are seen in the visualized skeleton. No evidence of bowel obstruction noting a paucity of small bowel gas. A moderate amount of stool is noted within the large bowel. IMPRESSION: Nonobstructive bowel gas pattern. ACT 112: Negative or not required by law. Electronically signed by: Ulysses Vegas M.D. 01/30/2023 8:02 AM Abdomen/Pelvis CT 01/30/23 07:53 CT abd pelvis IV con only CLINICAL HISTORY: n/v, abd pain TECHNIQUE: Helical axial images of the abdomen and pelvis were obtained and displayed. Automated dose lowering techniques and/or adjustment according to patient size were utilized for this exam. This exam was performed with intravenous contrast. CT DOSE: 395.22 mGy.cm COMPARISON: Comparison is made to CT abdomen 01/01/2023 FINDINGS: Lower chest: Bibasilar atelectasis versus scarring is seen. Liver: Unremarkable. No focal lesions are seen. Gallbladder and biliary tree: No calcified gallstones. Normal caliber wall. No intra- or extrahepatic biliary ductal dilation. Pancreas: Unremarkable, no focal lesions. Spleen: Unremarkable. Adrenals: Unremarkable. Kidneys and ureters: Nonobstructive stones are seen. Parapelvic cysts are noted. Bladder: Limited evaluation due to underdistention. Reproductive organs: Unremarkable. Bowel: Multiple bowel loops are distended. These measure up to 33 mm in diameter. No sharp transition point is seen proximally and distally there is a gradual transition point in the terminal ileum leading to and under distended colon. No bowel wall thickening or pneumatosis is seen. Lymph nodes Retroperitoneal: Unremarkable. Pelvic: Unremarkable. Mesenteric: Unremarkable. Peritoneum: Trace free fluid is seen. Perineal carcinomatosis is again seen with multiple deposits measuring up to 33 x 86 mm in the right upper quadrant. Hyperdense contrast in the lesion is again noted. Vessels: Atherosclerotic calcifications are seen. Abdominal wall: Unremarkable. Bones: Degenerative changes in the visualized spine. IMPRESSION: 1. Small bowel dilation compatible with ileus or partial obstruction. No evidence of bowel ischemia. 2. Peritoneal carcinomatosis. 3. Additional findings as above. ACT 112: Negative or not required by law. Electronically signed by: Ulysses Vegas M.D. 01/30/2023 8:58 AM Discharge Plan Visit Data Chief Complaint: Nausea Stated Complaint: NAUSEA AND VOMITING ED Provider: Carmella Hollis Discharge Problem: Nausea & vomiting Patient Disposition: Home - Self-Care Condition: Good Discharge Instructions Krames/Other Patient Handouts: ED Dehydration (Adult), ED Vomiting (Adult) Activity Restrictions/Additional Instructions: Please drink clear liquids the next 48 hours as a precaution. You may use the nausea medication and abdominal cramping medication if needed as prescribed. If you are feeling well after that, you may slowly advance to a light and bland diet. Please call and follow-up with your family doctor next week for recheck of your symptoms as a precaution. If you develop recurrent or worsening pain, recurrent vomiting, fevers, black or bloody stools, or not passing gas, develop dizziness, weakness, or you have any other new concerns, please return to the ER immediately. Interventions: ED Discharge Assessment Last Done: 01/30/23 13:45 Forms Stand Alone Forms: [facility], [facility] Emergency Department, Important Visit Information Prescriptions Prescriptions: New ondansetron HCl 4 mg tablet 4 mg PO Q8H PRN (Reason: nausea and vomiting) Qty: 10 0RF dicyclomine 10 mg capsule 10 mg PO TID PRN (Reason: abdominal pain) Qty: 10 0RF No Action polyethylene glycol 3350 [Miralax] 17 gram/dose powder 17 g PO DAILY Metamucil 3.4 gram/5.4 gram powder 2 tbsp PO 3XWK Rx Instructions: mix into at least 8 oz of water or juice before administering Tuesday//Tuesday Centrum Silver Women 8 mg iron-400 mcg-300 mcg Tablet 1 tab PO QAM Airborne (with lysine acetate) 250-12.5 mg Tablet,Chewable 1 mg PO QAM calcium-vitamin D3-vitamin K [Viactiv] 650 mg-12.5 mcg-40 mcg Tablet,Chewable 1 tab PO BID Rx Instructions: 1 chew twice daily white petrolatum [Vaseline] Gel 1 applic TOPICAL QAM Rx Instructions: apply after cleansing to biopsy site left temporal area magnesium 200 mg tablet 200 mg PO BID Qty: 60 6RF anastrozole [Arimidex] 1 mg tablet 1 mg PO QAM Referrals Referrals: Angie Martínez MD [Primary Care Provider] - (2-3 days)
[2023-01-30 07:08] LABS: Albumin Globulin Ratio 1.2 (0.9-2); Albumin Level 4.5 gm/dl (3.4-5.0); Bilirubin,Total 0.5 mg/dl (0.2-1.0); Calcium 10.7 mg/dl (8.6-10.3); Creatinine Clr Calc Pharmacy 55.9 ml/min; Est GFR (African American) 95.4 ml/min; Est GFR (Non-African American) 82.3 ml/min; Globulin 3.9 gm/dl (2.5-4.0); Potassium 4.5 mmol/L (3.5-5.1); Total Protein 8.4 gm/dl (6.0-8.3)
[2023-01-30 07:25] LABS: Basophils # (auto) 0.02 K/uL (0-0.2); Basophils % (auto) 0.1 %; Eosinophils # (auto) 0.01 K/uL (0-0.50); Eosinophils % (auto) 0.1 %; Immature Granulocytes # (auto) 0.07 K/uL (0.01-0.20); Immature Granulocytes % (auto) 0.5 %; Lymphocytes # (auto) 0.47 K/uL (1.2-3.4); Lymphocytes % (auto) 3.4 %; Monocytes # (auto) 0.41 K/uL (0.11-0.59); Neutrophils # (auto) 12.81 K/uL (1.40-6.50); Neutrophils % (auto) 92.9 %
--- NOTE | 2023-01-30 08:05 | XRay Report ---
XR KUB/Abdomen 1 view CLINICAL HISTORY: n/v TECHNIQUE: 1 view of the abdomen was obtained. Comparison: Comparison is made to CT abdomen 01/01/2023 FINDINGS: Lung bases are unremarkable. Degenerative changes are seen in the visualized skeleton. No evidence of bowel obstruction noting a paucity of small bowel gas. A moderate amount of stool is noted within th e large bowel. IMPRESSION: Nonobstructive bowel gas pattern. ACT 112: Negative or not required by law. Electronically signed by: Ulysses Vegas M.D. 01/30/2023 8:02 AM
[2023-01-30] MEDS ORDERED: OPTIRAY 320 100ml IV ONE (08:21)
--- NOTE | 2023-01-30 09:00 | CT Scan Report ---
CT abd pelvis IV con only CLINICAL HISTORY: n/v, abd pain TECHNIQUE: Helical axial images of the abdomen and pelvis were obtained and displayed. Automated dose lowering techniques and/or adjustment according to patient size were utilized for this exam. This e xam was performed with intravenous contrast. CT DOSE: 395.22 mGy.cm COMPARISON: Comparison is made to CT abdomen 01/01/2023 FINDINGS: Lower chest: Bibasilar atelectasis versus scarring is seen. Liver: Unremarkable. No focal lesions are seen. Gallbladder and biliary tree: No calcified gallstones. Normal caliber wall. No intra- or extrahepatic biliary ductal dilation. Pancreas: Unremarkable, no focal lesions. Spleen: Unremarkable. Adrenals: Unremarkable. Kidneys and ureters: Nonobstructive stones are seen. Parapelvic cysts are noted. Bladder: Limited evaluation due to underdistention. Reproductive organs: Unremarkable. Bowel: Multiple bowel loops are distended. These measure up to 33 mm in diameter. No sharp transition point is seen proximally and distally there is a gradual transition point in the terminal ileum lead ing to and under distended colon. No bowel wall thickening or pneumatosis is seen. Lymph nodes Retroperitoneal: Unremarkable. Pelvic: Unremarkable. Mesenteric: Unremarkable. Peritoneum: Trace free fluid is seen. Perineal carcinomatosis is again seen with multiple deposits me asuring up to 33 x 86 mm in the right upper quadrant. Hyperdense contrast in the lesion is again note d. Vessels: Atherosclerotic calcifications are seen. Abdominal wall: Unremarkable. Bones: Degenerative changes in the visualized spine. IMPRESSION: 1. Small bowel dilation compatible with ileus or partial obstruction. No evidence of bowel ischemia. 2. Peritoneal carcinomatosis. 3. Additional findings as above. ACT 112: Negative or not required by law. Electronically signed by: Ulysses Vegas M.D. 01/30/2023 8:58 AM
[2023-01-30] MEDS ORDERED: ACETAMINOPHEN 1,000 MG/100 ML VIAL IV STA (09:13)
[2023-01-30] MEDS ORDERED: BENTYL HOME PACK 10 MG VIAL PO ONE (13:20)
[2023-01-30] MEDS ORDERED: ONDANSETRON HOME PACK 4MG OD TAB PO ONE (13:20)
[2023-01-30] MEDS ORDERED: SODIUM CHLORIDE 0.9% 1000ML 1,000 ML IV SCH (14:00)
--- NOTE | 2023-01-30 14:17 | History & Physical Report ---
Date of Service January 30, 2023 Assessment & Plan (1) Nausea & vomiting: Plan: Suspect developing a low-grade SBO with gradual transition point, DDx includes ileus - CT-A/P:Multiple bowel loops are distended. These measure up to 33 mm in diameter. No sharp transition point is seen proximally and distally there is a gradual transition point in the terminal ileum leading to and under distended colon. No bowel wall thickening or pneumatosis is seen. - Cr 0.76 on admit - WBC 13.79 with vomiting, ?demargination. +Neutorphilic predominance without increase immature graunlocytes, suspect demargination - hgb 15.2 - Bun/Cr ratio elevated at 25, clinically volume depleted - Mild hypercalcemia w/ volume contraction. Repeat post fluids pending. -Given recurrent symptoms over 12 hours and continued nausea/vomiting discussed NGT with patient to which she is agreeable. Will admit for medical management of suspected developing SBO, Zofran every 4 hours, NGT to LIS, pain control for breakthrough with morphine as needed She has a history of hysterectomy with bilateral salpingo-oophorectomy with multiple abdominal debulking surgeries in the past. It is high risk for adhesions, also has multiple carcinomatosis. She follows with Dr. Almaraz and [facility] oncology, receives treatments locally with Dr. Kash Boateng. If she does not improve with conservative medical management and would require surgical intervention/lysis of adhesions she would like this discussed with Dr. Almaraz prior to any procedures as additional debulking procedures have been discussed and may want to be pursued at the same time. Ovarian cancer, granulosa cell tumor Primarily managed by [facility] Dr. Almaraz follows locally with [facility] for her treatments S/p surgical resection, post chemo with limited improvement & recurrent masses. 10/15/21 [employer] note for complete list of treatment/surgeries which included bleomycin, etoposide, cisplatin, doxorubicin, letrozole, leuprolide, anastrozole Pending consultation for transition from current arm attacks back to cytotoxic chemotherapy, this has not yet been initiated. Retroperitoneal hematoma 03/2021 [place] [facility] [place] Previous question of whether patient had been on Eliquis in the past. Patient clarifies that she has not been on Eliquis, there was some confusion as she has a twin sister who was on this for different reasons. She has however been on DVT prophylaxis while inpatient and tolerated this well. Prophylaxis was temporarily held for concern of intratumoral contrast blush concerning for intramural hemorrhage during 12/2022 admission. This was not noted on contrasted CT this admission, hemoglobin is 15.2. Discussed risk/benefits with patient, will place on Lovenox DVT prophylaxis while inpatient Patient denies other chronic medical problems DVT prophylaxis: Lovenox Disposition: Medical/surgical Diet: N.p.o., IVF M 120 cc/h CODE STATUS: Full code (2) Granulosa cell carcinoma: History of Present Illness Primary Care Provider: Angie Martínez MD Inga Melo is a 67-year-old female with a past medical history of ovarian cancer who presents with nausea/vomiting. CT consistent with ileus versus developing SBO. Patient has a history of abdominal surgery and is at risk for adhesions. Initially patient was feeling well with symptomatic care, antiemetics, and fluids was pending discharge home to continue clears for 2 days however when she is about to leave the ER she had a recurrence of severe nausea and copious emesis. She has been recommended for admission for management of possible developing SBO. Has had extreme craming in her abdomen last night 6-7pm. Early in the morning developing worsening abdominal cramps and discomfort. After midnight day of admittion was vomiting every hour and had one episode of syncope while vomiting on the commode. In the morning vomiting increased to every 20 minutes and felt terrible so came in to the ER. No prior history of this, no hx of bowel obstruction. has been around people hwo had been sick and was at a wedding so thought she might have a viral illness but has never had vomiting like this before. Last BM was last night, 2x last night and 1x this morning small but formed soft and brown. Has had 'alot' of abdominal surgery. Granulosa cell tumor of the ovary x11 years. Hx of hysterectomy-ooferectomy. Has had 4 followup surgeries to remove recurrent masses. Has completed 2 prior regimens of chemotherapy, a course of radiation therapy, and is currently on avastin which will be changed to chemo in the next few weeks. main oncology is Dr. Almaraz at [facility], pt gets treatment locally with Dr. Grace who administers. No fevers, chills, sweats. Intermittently has had night sweats in the past, no recent. No cough hx of hysterectomy and bilaterl ooferectomy Emesis is recently green, earlier was brown. Nothing black or bloody. No blood/black emesis. No current lightheadedness/dizziness laying at rest, but lightheaded when she tries to stand. Medical History: Reviewed Medications: Reviewed Surgical History: Reviewed Family history: Reviewed Allergies: Reviewed. NKMA. Social History: No tobacco/etoh use Code Status: Full Code Allergies Allergy/AdvReac Type Severity Reaction Status Date / Time adhesive Allergy Unknown adhesive Verified 01/30/23 15:00 bandage Unclassified Drugs Allergy Unknown PUSTULES Uncoded 01/30/23 15:00 FORMED UNDER DERMABOND Home Medications Medication Instructions Recorded Confirmed Type multivit with 1 tab PO QAM 03/29/19 01/30/23 History hqptgrsd-jgog-YT-lutein 8 mg iron-400 mcg-300 mcg tablet (Centrum Silver Women) calcium 650 mg-vitamin D3 12.5 1 tab PO BID 10/02/19 01/30/23 History mcg-vitamin K 40 mcg chewable tablet (Viactiv) anastrozole 1 mg tablet (Arimidex) 1 mg PO QAM 03/29/21 01/30/23 History polyethylene glycol 3350 17 17 g PO DAILY 03/26/22 01/30/23 History gram/dose oral powder (Miralax) psyllium husk 3.4 gram/5.4 gram 2 tbsp PO 3XWK 03/26/22 01/30/23 History oral powder (Metamucil) magnesium 200 mg tablet 200 mg PO BID #60 tabs 01/02/23 01/30/23 Rx dicyclomine 10 mg capsule 10 mg PO TID PRN abdominal pain 01/30/23 Rx #10 caps ondansetron HCl 4 mg tablet 4 mg PO Q8H PRN nausea and 01/30/23 Rx vomiting #10 tabs Past Med/Surg History Medical History Granulosa cell carcinoma Surgical History H/O oophorectomy History of cancer surgery multiple tumor debulking procedures History of hysterectomy Family History Mother Cancer Colon Cancer Social History (Reviewed 01/30/23 @ 12:50 by JC Nguyen Smoking Status: Never smoker Hx Alcohol Use: No Hx Substance Use: No Preferred Language: Kittitian Communication Ability: Effective Hearing Ability: Normal [employer]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 NAD. Cooperative. HEENT: Atraumatic, normocephalic.Vision/hearing intact Pulm: CTAB A&P. -wheezes, -rales, -rhonchi. Symmetrical chest rise. No increased work of breathing. No respiratory distress. Cardiac: RRR, -mrg. Radial pulses intact and symmetrical. Abdominal: Minimally diffusely tender without rigidity/rebound/deep tenderness. Softly distended. Extremities: Thin, warm, dry. Moves all extremities equally Results & Data Results & Data Vital Signs (Past 12 Hours) Vital Signs Temp Pulse Pulse Resp BP BP Pulse Ox 01/30/23 13:45 51 L 16 126/70 99 01/30/23 13:08 49 L 01/30/23 12:00 54 L 18 123/77 98 01/30/23 10:28 58 L 18 122/72 99 01/30/23 09:10 63 01/30/23 08:28 66 18 127/67 99 01/30/23 06:52 100 01/30/23 06:00 36.3 C L 76 22 118/77 100 O2 Del Method 01/30/23 13:45 Room Air 01/30/23 13:08 01/30/23 12:00 Room Air 01/30/23 10:28 Room Air 01/30/23 09:10 01/30/23 08:28 Room Air 01/30/23 06:52 Room Air 01/30/23 06:00 Room Air PG Care Time/CCT Total # of Minutes Spent Total Time Spent with Patient: Total time spent is greater than 50% in coordination of care (as documented) at patient's floor/unit and/or counseling patient: Coding Level of Care Code 98393 INT INP/OBS CARE MIN Diagnoses Nausea & vomiting R11.2 Granulosa cell carcinoma C56.2 Laterality: left (2) Granulosa cell carcinoma Laterality: left Qualified Code(s): C56.2 - Malignant neoplasm of left ovary
[2023-01-30] MEDS ORDERED: MoRPHine SULFATE 2 MG/ML CARP IV PRN (18:56)
[2023-01-30] MEDS ORDERED: ONDANSETRON INJ 2 MG/ML 2 ML VIAL IV PRN (18:56)
[2023-01-30] MEDS: LACTATED RINGER'S 1,000 ML IV SCH (19:19)
[2023-01-30] MEDS: ENOXAPARIN INJ 40 MG/0.4 ML SYR SQ SCH (19:54)
[2023-01-30 22:22] LABS: Appearance Urine Clear (Clear); Bacteria Urine Automated Negative (Negative); Bilirubin Urine Negative (Negative); Blood Urine Negative (Negative); Color Urine Dark Yellow; Epithelial Cell Urine Auto >30 /lpf (0-5); Glucose Urine UA Negative (Negative); Ketones Urine 1+ (Negative); Leukocyte Esterase Urine Negative (Negative); Nitrite Urine Negative (Negative); Protein Urine 1+ (Negative); Specific Gravity Urine 1.044 (1.000-1.030); Urobilinogen Urine Negative (Negative); pH Urine 5.5 (4.5-7.5)
[2023-01-31] MEDS: LACTATED RINGER'S 1,000 ML IV SCH ×2 (04:59→15:23)
[2023-01-31 06:28] LABS: BUN Creatinine Ratio 27.9 (10-20); Calcium 8.1 mg/dl (8.6-10.3); Creatinine Clr Calc Pharmacy 73.6 ml/min; Est GFR (African American) 110.3 ml/min; Est GFR (Non-African American) 95.1 ml/min; Magnesium 1.9 mg/dl (1.7-2.4)
--- NOTE | 2023-01-31 06:33 | Electrocardiogram Report ---
Test Reason : Blood Pressure : / mmHG Vent. Rate : 053 BPM Atrial Rate : 053 BPM P-R Int : 156 ms QRS Dur : 086 ms QT Int : 452 ms P-R-T Axes : 065 064 049 degrees QTc Int : 424 ms Sinus bradycardia Possible Left atrial enlargement Septal infarct , age undetermined Abnormal ECG When compared with ECG of 10-SEP-2013 12:59, No significant change was found Confirmed by Kash Rosario ([id number]) on 01/31/2023 6:33:06 AM Referred By: Angie Martínez Confirmed By:Kash Rosario
[2023-01-31 06:43] LABS: Basophils # (auto) 0.03 K/uL (0-0.2); Basophils % (auto) 0.6 %; Eosinophils # (auto) 0.13 K/uL (0-0.50); Eosinophils % (auto) 2.5 %; Hematocrit (blood only) 32.2 % (37.0-47.0); Hemoglobin 10.2 g/dl (12.0-16.0); Immature Granulocytes # (auto) 0.02 K/uL (0.01-0.20); Immature Granulocytes % (auto) 0.4 %; Lymphocytes # (auto) 0.68 K/uL (1.2-3.4); Lymphocytes % (auto) 13.2 %; Mean Corpuscular Hemoglobin 26.8 pg (25.0-34.0); Mean Corpuscular Hgb Conc 31.7 g/dL (32.0-36.0); Mean Corpuscular Volume 84.7 fL (80.0-100.0); Mean Platelet Volume 9.8 fL (9.4-12.4); Monocytes # (auto) 0.45 K/uL (0.11-0.59); Monocytes % (auto) 8.7 %; Neutrophils # (auto) 3.84 K/uL (1.40-6.50); Neutrophils % (auto) 74.6 %; Platelet Count 206 K/uL (130-400); RDW Coefficient of Variation 14.7 % (11.5-14.5); RDW Standard Deviation 45.2 fL (36.4-46.3); White Blood Count 5.15 K/ul (4.8-10.8)
[2023-01-31] MEDS: PANTOprazole 40 MG in SYRINGE 0 ML IV SCH (10:53)
--- NOTE | 2023-01-31 15:22 | Hospitalist Progress Note ---
Date of Service January 31, 2023 Assessment & Plan (1) Nausea & vomiting: Plan: Due to suspected small bowel obstruction. Hopefully this has now resolved. She is passing flatus and has had a bowel movement. Clear liquid diet started. Will advance as tolerated. IV fluids taper down. (2) Granulosa cell carcinoma: Plan: Treated by Dr. Almaraz at [facility]. She is status post surgical resection and has received chemotherapy. (3) Retroperitoneal hematoma: Plan: This occurred in the past. Not an acute problem. Plan Advance diet as tolerated and continue to taper IV fluids. Hopefully she can avoid further surgery and go home soon. Admission and Anticipated Discharge Date Admission Date: January 30, 2023 Subjective Alert and oriented. She is feeling better. Nausea and vomiting have resolved. She states she is passing flatus and has had a small bowel movement. Clear liquid diet has been started. IV fluids taper down. Hopefully she will continue to improve and the diet can be advanced and she can go home soon. Review of Systems Review of Systems: Constitutional-no fever or chills ENT-no blurred vision, no double vision, no epistaxis, no sore throat Respiratory-no cough, no wheezing, no shortness of breath Cardiac-no palpitations, no chest pain, no syncope GI-no nausea, vomiting, diarrhea, melena, hematochezia. Mild left lower quadrant discomfort which is chronic -no urinary retention, no urinary incontinence, no dysuria, no hematuria Musculoskeletal-no joint pain, no muscle tenderness Skin-no bruising, no rashes, no pruritus Neuro-no isolated weakness, no paresthesia, no weakness Psych-no depression, no anxiety Physical Exam Physical Exam: General-alert and oriented x3, no fevers, no chills HEENT-head atraumatic and normocephalic, pupils equal and reactive to light, extraocular muscles intact Neck-no lymphadenopathy or thyromegaly, trachea midline Chest-clear to auscultation percussion. No rales wheezing or rhonchi Cardiac-regular rate and rhythm, normal S1 and S2, no murmurs Abdomen-normal bowel sounds, no hepatosplenomegaly. No distention. Mild left lower quadrant tenderness with no rebound or guarding. No masses Extremities-no cyanosis, clubbing, or edema Neuro-cranial nerves II through XII intact, motor and sensory function within normal limits, strength symmetrical , no focal deficits Psych-normal affect, normal mood Results & Data Results & Data Vital Signs (Past 12 Hours) Vital Signs Temp Pulse Resp BP Pulse Ox O2 Del Method 01/31/23 07:17 36.8 C 58 L 16 123/69 98 Room Air Laboratory Results 01/31/23 05:46 01/31/23 05:46 PG Care Time/CCT Total # of Minutes Spent Total Time Spent with Patient: Total time spent is greater than 50% in coordination of care (as documented) at patient's floor/unit and/or counseling patient: Coding Level of Care Code 83356 SUB INP/OBS CARE 3/50MIN Diagnoses Nausea & vomiting R11.2 Granulosa cell carcinoma C56.2 Laterality: left Retroperitoneal hematoma K66.1 (2) Granulosa cell carcinoma Laterality: left Qualified Code(s): C56.2 - Malignant neoplasm of left ovary
[2023-01-31] MEDS: ENOXAPARIN INJ 40 MG/0.4 ML SYR SQ SCH (18:28)
[2023-02-01] MEDS: LACTATED RINGER'S 1,000 ML IV SCH (04:34)
[2023-02-01 08:38] LABS: Basophils # (auto) 0.01 K/uL (0-0.2); Basophils % (auto) 0.1 %; Eosinophils # (auto) 0.05 K/uL (0-0.50); Eosinophils % (auto) 0.6 %; Hematocrit (blood only) 33.8 % (37.0-47.0); Hemoglobin 10.8 g/dl (12.0-16.0); Immature Granulocytes # (auto) 0.03 K/uL (0.01-0.20); Immature Granulocytes % (auto) 0.4 %; Lymphocytes # (auto) 0.57 K/uL (1.2-3.4); Lymphocytes % (auto) 7.1 %; Mean Corpuscular Hemoglobin 26.7 pg (25.0-34.0); Mean Corpuscular Volume 83.7 fL (80.0-100.0); Monocytes # (auto) 0.56 K/uL (0.11-0.59); Monocytes % (auto) 6.9 %; Neutrophils # (auto) 6.85 K/uL (1.40-6.50); Neutrophils % (auto) 84.9 %; Platelet Count 164 K/uL (130-400); RDW Coefficient of Variation 14.5 % (11.5-14.5); RDW Standard Deviation 43.9 fL (36.4-46.3); Red Blood Count 4.04 M/uL (4.20-5.40); White Blood Count 8.07 K/ul (4.8-10.8)
[2023-02-01 08:56] LABS: BUN Creatinine Ratio 26.3 (10-20); Calcium 8.6 mg/dl (8.6-10.3); Creatinine Clr Calc Pharmacy 78.8 ml/min; Est GFR (African American) 112.7 ml/min; Est GFR (Non-African American) 97.3 ml/min; Potassium 3.9 mmol/L (3.5-5.1)
[2023-02-01] MEDS: PANTOprazole 40 MG in SYRINGE 0 ML IV SCH (11:18)
[2023-02-01] MEDS ORDERED: POLYETHYLENE (MIRALAX) 17 GM PACK PO SCH (11:45)
--- NOTE | 2023-02-01 14:39 | Hospitalist Progress Note ---
Date of Service February 01, 2023 Assessment & Plan (1) Nausea & vomiting: Plan: Due to suspected small bowel obstruction. Now resolved. She is passing flatus and has had a bowel movement. Clear liquid diet advanced to full liquids today, February 01. IV fluids have been tapered down. (2) Granulosa cell carcinoma: Plan: Treated by Dr. Almaraz at [facility]. She is status post surgical resection and has received chemotherapy. (3) Retroperitoneal hematoma: Plan: This occurred in the past. Not an acute problem. Plan Advance diet as tolerated and continue to taper IV fluids. Hopefully she can avoid further surgery and go home soon, possibly later today, February 01 Admission and Anticipated Discharge Date Admission Date: January 30, 2023 Subjective Alert and oriented. No distress. She has passed some hard stool. MiraLAX started. Diet has been advanced. Hopefully she can go home later today, February 01 Review of Systems Review of Systems: Constitutional-no fever or chills ENT-no blurred vision, no double vision, no epistaxis, no sore throat Respiratory-no cough, no wheezing, no shortness of breath Cardiac-no palpitations, no chest pain, no syncope GI-no nausea, vomiting, diarrhea, melena, hematochezia. Mild left lower quadrant discomfort which is chronic -no urinary retention, no urinary incontinence, no dysuria, no hematuria Musculoskeletal-no joint pain, no muscle tenderness Skin-no bruising, no rashes, no pruritus Neuro-no isolated weakness, no paresthesia, no weakness Psych-no depression, no anxiety Physical Exam Physical Exam: General-alert and oriented x3, no fevers, no chills HEENT-head atraumatic and normocephalic, pupils equal and reactive to light, extraocular muscles intact Neck-no lymphadenopathy or thyromegaly, trachea midline Chest-clear to auscultation percussion. No rales wheezing or rhonchi Cardiac-regular rate and rhythm, normal S1 and S2, no murmurs Abdomen-normal bowel sounds, no hepatosplenomegaly. No distention. Mild left l ower quadrant tenderness with no rebound or guarding. No masses Extremities-no cyanosis, clubbing, or edema Neuro-cranial nerves II through XII intact, motor and sensory function within normal limits, strength symmetrical , no focal deficits Psych-normal affect, normal mood Results & Data Results & Data Vital Signs (Past 12 Hours) Vital Signs Temp Pulse Resp BP Pulse Ox O2 Del Method 02/01/23 07:17 36.9 C 51 L 18 129/67 94 Room Air Laboratory Results 02/01/23 08:01 02/01/23 08:01 PG Care Time/CCT Total # of Minutes Spent Total Time Spent with Patient: Total time spent is greater than 50% in coordination of care (as documented) at patient's floor/unit and/or counseling patient: Coding Level of Care Code 04736 SUB INP/OBS CARE 3/50MIN Diagnoses Nausea & vomiting R11.2 Granulosa cell carcinoma C56.2 Laterality: left Retroperitoneal hematoma K66.1 (2) Granulosa cell carcinoma Laterality: left Qualified Code(s): C56.2 - Malignant neoplasm of left ovary
[2023-02-01 15:19] VITALS: BP 139/81; TEMP 98.8; O2SAT 93
--- NOTE | 2023-02-01 17:08 | Discharge Summary ---
Date of Service February 01, 2023 Admission HPI Per Admitting Provider Inga Melo is a 67-year-old female with a past medical history of ovarian cancer who presents with nausea/vomiting. CT consistent with ileus versus developing SBO. Patient has a history of abdominal surgery and is at risk for adhesions. Initially patient was feeling well with symptomatic care, antiemetics, and fluids was pending discharge home to continue clears for 2 days however when she is about to leave the ER she had a recurrence of severe nausea and copious emesis. She has been recommended for admission for management of possible developing SBO. Has had extreme craming in her abdomen last night 6-7pm. Early in the morning developing worsening abdominal cramps and discomfort. After midnight day of admittion was vomiting every hour and had one episode of syncope while vomiting on the commode. In the morning vomiting increased to every 20 minutes and felt terrible so came in to the ER. No prior history of this, no hx of bowel obstruction. has been around people hwo had been sick and was at a wedding so thought she might have a viral illness but has never had vomiting like this before. Last BM was last night, 2x last night and 1x this morning small but formed soft and brown. Has had 'alot' of abdominal surgery. Granulosa cell tumor of the ovary x11 years. Hx of hysterectomy-ooferectomy. Has had 4 followup surgeries to remove recurrent masses. Has completed 2 prior regimens of chemotherapy, a course of radiation therapy, and is currently on avastin which will be changed to chemo in the next few weeks. main oncology is Dr. Almaraz at [facility], pt gets treatment locally with Dr. Grace who administers. No fevers, chills, sweats. Intermittently has had night sweats in the past, no recent. No cough hx of hysterectomy and bilaterl ooferectomy Emesis is recently green, earlier was brown. Nothing black or bloody. No blood/black emesis. No current lightheadedness/dizziness laying at rest, but lightheaded when she tries to stand. Medical History: Reviewed Medications: Reviewed Surgical History: Reviewed Family history: Reviewed Allergies: Reviewed. NKMA. Social History: No tobacco/etoh use Code Status: Full Code Principal Diagnosis Nausea and vomiting due to suspected small bowel obstruction Discharge Exam General-alert and oriented x3, no fevers, no chills HEENT-head atraumatic and normocephalic, pupils equal and reactive to light, extraocular muscles intact Neck-no lymphadenopathy or thyromegaly, trachea midline Chest-clear to auscultation percussion. No rales wheezing or rhonchi Cardiac-regular rate and rhythm, normal S1 and S2, no murmurs Abdomen-normal bowel sounds, no hepatosplenomegaly. No distention. Mild left lower quadrant tenderness with no rebound or guarding. No masses Extremities-no cyanosis, clubbing, or edema Neuro-cranial nerves II through XII intact, motor and sensory function within normal limits, strength symmetrical , no focal deficits Psych-normal affect, normal mood Discharge Data Allergies Allergy/AdvReac Type Severity Reaction Status Date / Time 2-octyl cyanoacrylate Allergy Unknown Unknown Verified 01/30/23 19:31 adhesive Allergy Unknown adhesive Verified 01/30/23 15:00 bandage Consultations 01/30/23 16:54 ED Decision to Admit Stat Ordered Studies 01/30/23 07:53 CT abd pelvis IV con only Stat Hospital Course (1) Nausea & vomiting: Due to suspected small bowel obstruction. Now resolved. She is passing flatus and has had a bowel movement. Clear liquid diet advanced to full liquids today, February 01. IV fluids have been tapered down. (2) Granulosa cell carcinoma: Treated by Dr. Almaraz at [facility]. She is status post surgical resection and has received chemotherapy. (3) Retroperitoneal hematoma: This occurred in the past. Not an acute problem. Plan Advance diet as tolerated and continue to taper IV fluids. Hopefully she can avoid further surgery and go home soon, possibly later today, February 01 Total Time Total Time Spent Total Time Spent (In Minutes): 40 minutes Discharge Plan Discharge Items Patient Disposition: Home - Self-Care Reason For Visit: DEVELOPING SBO Discharge Diagnosis: Suspected partial small bowel obstruction with nausea and vomiting Condition on Discharge: Good Activity: Resume your previous activity Non-emergency contact: Primary Care Provider and Oncologist Call non-emergency contact if: you have any medication questions and your symptoms worsen Follow-up/Referrals: Angie Martínez MD [Primary Care Provider] - Diet: Regular and Low Fiber Addtl Attending Provider Instructions: Take MiraLAX twice a day and Colace 100 mg twice a day Pending Studies at Discharge: No Stand-Alone Forms: My [place], Smoking Cessation Medications and DC Order Prescriptions: New ondansetron HCl 4 mg tablet 4 mg PO Q8H PRN (Reason: nausea and vomiting) Qty: 10 0RF dicyclomine 10 mg capsule 10 mg PO TID PRN (Reason: abdominal pain) Qty: 10 0RF docusate sodium [Colace] 100 mg capsule 100 mg PO BID Qty: 10 0RF Continued Metamucil 3.4 gram/5.4 gram powder 2 tbsp PO 3XWK Rx Instructions: mix into at least 8 oz of water or juice before administering Tuesday//Tuesday Centrum Silver Women 8 mg iron-400 mcg-300 mcg Tablet 1 tab PO QAM calcium-vitamin D3-vitamin K [Viactiv] 650 mg-12.5 mcg-40 mcg Tablet,Chewable 1 tab PO BID Rx Instructions: 1 chew twice daily magnesium 200 mg tablet 200 mg PO BID Qty: 60 6RF anastrozole [Arimidex] 1 mg tablet 1 mg PO QAM Changed polyethylene glycol 3350 [Miralax] 17 gram/dose powder 17 g PO BID Qty: 119 0RF Discharge Orders: Discharge Order (Routine); Ordered 02/01/23 Ordered By: Kwabena Castillo Admission Data Admit Date/Time: 01/30/23 14:51 Attending Provider: Kwabena Castillo Admit Provider: Alen Ferrari Primary Care Provider: Angie Martínez Other Providers: Alen Ferrari Coding Level of Care Code 07768 INP/OBS DISCH >30 MIN Diagnoses Nausea & vomiting R11.2 Granulosa cell carcinoma C56.2 Laterality: left Retroperitoneal hematoma K66.1
[2023-02-01 17:17] VITALS: PULSE 55
== END 2023-02-01 18:00 | disposition home or self-care (01) ==
LOC: ED 05:53 → EDINP 05:53 → SUATTDRO 14:51 → 3N 17:44